=== PATIENT | male | born 1935 | race Caucasian/White ===

== ENCOUNTER 2017-02-06 22:56 | Inpatient (IN) | payer OTHER ==
--- NOTE | 2017-02-07 00:20 | PDOC ---
History of Present Illness - General History Source: Patient Exam Limitations: No Limitations - History of Present Illness Initial Comments: 02/07/17 00:41 The patient is a 81 year old male with a significant past medical history of stents, open heart surgery (20 years ago), prostate surgery (3 years ago), HTN, HLD, who presents to the ED accompanied with daughter, complaining of SOB, left- sided chest pain, and cough. Pt states he has been having these symptoms for the past month. He describes the chest pain as sharp and 8/10 in severity. He just came [place] to the [place] 3 [place] ago from [facility]. Saw Dr. fagan on and was told he had congestion or pneumonia. Patient denies fever, chills, nausea, vomiting, diarrhea, Patient currently takes aspirin everyday. PCP: Dr. Moy [facility] Slide Forming Machine Operator: Dr. Fagan at [place]. <Marvin Montez - Last Filed: 02/07/17 01:49> - General History Source: Patient, Family Exam Limitations: No Limitations <Meera Nye - Last Filed: 02/07/17 02:08> - General Chief Complaint: Shortness of Breath Stated Complaint: DIFFICULTY BREATHING Time Seen by Provider: 02/06/17 23:48 Past History <Marvin Montez - Last Filed: 02/07/17 01:49> - Past Medical History Cardiac Disorders: Yes Other medical history: prostate - Surgical History Cardiac Surgery: Yes - Psycho/Social/Smoking Cessation Hx Suicidal Ideation: No Smoking History: Never smoked <Meera Nye - Last Filed: 02/07/17 02:08> - Past Medical History Allergies/Adverse Reactions: Allergies Allergy/AdvReac Type Severity Reaction Status Date / Time No Known Allergies Allergy Verified 02/06/17 23:02 Home Medications: Ambulatory Orders Aspirin [ASA -] 81 mg PO DAILY 02/06/17 Azithromycin [Zithromax -] 250 mg PO DAILY 02/06/17 Tamsulosin HCl [Flomax] 0.4 mg PO DAILY 02/06/17 Review of Systems - Review of Systems Able to Perform ROS?: Yes Comments:: 02/07/17 00:41 GENERAL/CONSTITUTIONAL: No: fever, chills, weakness, loss of appetite. HEAD, EYES, EARS, NOSE AND THROAT: No: change in vision, ear pain, discharge, sore throat, throat swelling. CARDIOVASCULAR: + chest pain. No: lightheadedness, palpitations, syncope RESPIRATORY: + cough + SOB No: wheezing, hemoptysis, stridor. GASTROINTESTINAL: No: nausea, vomiting, abdominal cramping, diarrhea, rectal bleeding, constipation. GENITOURINARY: No: dysuria, hematuria, frequency, urgency, flank pain. MUSCULOSKELET AL: No: back pain, neck pain, joint pain, muscle swelling or pain SKIN AND BREASTS: No: lesions, pallor, rash or easy bruising. NEUROLOGIC: No: headache, vertigo, paresthesias, weakness ENDOCRINE: No: unexplained weight gain or loss HEMATOLOGIC/LYMPHATIC: No: anemia, easy bleeding, swelling nodes <Marvin Montez - Last Filed: 02/07/17 01:49> *Physical Exam - Vital Signs Last Vital Signs Temp Pulse Resp BP Pulse Ox 97 F L 95 H 18 163/78 92 L 02/06/17 22:59 02/06/17 22:59 02/06/17 22:59 02/06/17 22:59 02/06/17 22:59 - Physical Exam Comments: 02/07/17 00:41 GENERAL: The patient is in no acute distress. HEAD: Normal with no signs of trauma. EYES: PERRLA, EOMI, sclera anicteric, conjunctiva clear. ENT: Ears normal, nares patent, oropharynx clear without exudates. Moist mucous membranes. NECK: Normal range of motion, supple without lymphadenopathy, JVD, or masses. LUNGS: Rhonchi, expiratory inspiratory wheezing. HEART:Regular rate and rhythm, normal S1 and S2 without murmur, rub or gallop. ABDOMEN: Soft, nontender, normoactive bowel sounds. No guarding, no rebound. EXTREMITIES: Normal range of motion, no edema. No clubbing or cyanosis. No erythema, or tenderness. NEUROLOGICAL: Cranial nerves II through XII grossly intact. Normal speech. No focal neurological deficits. MUSCULOSKELETAL: Back non-tender to palpation, no CVA tenderness SKIN: Warm, Dry, normal turgor, no rashes or lesions noted. <Marvin Montez - Last Filed: 02/07/17 01:49> - Vital Signs Last Vital Signs Temp Pulse Resp BP Pulse Ox 97 F L 95 H 18 163/78 92 L 02/06/17 22:59 02/06/17 22:59 02/06/17 22:59 02/06/17 22:59 02/06/17 22:59 <Meera Nye - Last Filed: 02/07/17 02:08> Heart Score/ECG Review #1 ECG reviewed & interpreted by me at: 02:07 - ECG Intrepretation Comment:: 02/07/17 02:07 Twelve-lead EKG was performed and reviewed by me. There is normal sinus rhythm with a normal rate of 79 bpm. The axis is normal. The intervals are normal - pr: 122ms, QRS:96ms, QTc:467ms. PAC <Meera Nye - Last Filed: 02/07/17 02:08> ED Treatment Course - LABORATORY CBC & Chemistry Diagram: 02/07/17 00:10 02/07/17 00:10 - ADDITIONAL ORDERS Additional order review: 02/07/17 00:10 RBC 4.37 MCV 80.2 MCHC 31.5 L RDW 18.3 H MPV 8.7 Neutrophils % 63.7 Lymphocytes % 16.1 Monocytes % 13.2 H Eosinophils % 5.0 H Basophils % 2.0 <Marvin Montez - Last Filed: 02/07/17 01:49> - LABORATORY CBC & Chemistry Diagram: 02/07/17 00:10 02/07/17 00:10 - RADIOLOGY Radiology Studies Ordered: Category Date Time Status CHEST X-RAY PORTABLE* [RAD] Stat Radiology 02/06/17 23:51 Ordered <Meera Nye - Last Filed: 02/07/17 02:08> Medical Decision Making - Medical Decision Making 02/07/17 01:[address] Simeon, who is on-call for PCP Samantha Prajapati <Marvin Montez - Last Filed: 02/07/17 01:49> - Medical Decision Making 02/07/17 00:20 A portion of this note was documented by scribe services under my direction. I have reviewed the details of the note, within reason, and agree with the documentation with the following case summary and management plan written by me. Nursing documentation reviewed and incorporated into medical decision making This is an 81 yo M with a history of HTN, HLD, CAD s/p CABG 20 years ago and stents 2 years ago Pt is brought in to the ER by his daughter He was recently in [facility] with a cousin who While there, he developed a cough and shortness of breath He was seen in a local hospital where he was told that the had a cardiac event He did not want to have any procedures there and told them that he wanted to leave [place] the [place] three days ago He was seen by his ehs teacher two days ago His ehs teacher told him this was not his heart but most likely pneumonia or bronchitis Pt has a productive cough, congestion, Left sided sharp chest pain No known fevers No chills no chest wall trauma On examination Diffusely rhoncherous Diffusely wheezing DD: Differential includes cardiac ischemia, pe, asthma exacerbation, pneumonia, pneumothorax, pleural effusion, costochondritis, pericarditis, GERD. 02/07/17 01:02 Laboratory Tests 02/07/17 02/07/17 02/07/17 00:10 00:10 00:10 WBC 7.6 Hgb 11.0 L Hct 35.0 L Plt Count 258 Neutrophils % 63.7 Lymphocytes % 16.1 INR 1.17 H Sodium 141 Potassium 4.8 Chloride 104 Carbon Dioxide 29 BUN 21 H Creatinine 1.2 Random Glucose 110 H Creatine Kinase 72 Troponin I 0.02 B-Natriuretic Peptide 4910.91 H 02/07/17 01:02 CXR: Left basilar consolidation 02/07/17 01:20 02/07/17 01:[address] gastelum Case reviewed with Dr Simeon Will admit to Tele for close monitoring Will still do CTA as pt recently returned from [facility] and is hypoxic This is likely due to pneumonia Will give Ceftriaxone and Azithromycin 02/07/17 01:47 <Meera Nye - Last Filed: 02/07/17 02:08> *DC/Admit/Observation/Transfer - Attestations Scribe Attestion: 02/07/17 00:42 Documentation prepared by Marvin Montez, acting as medical staffing coordinator for Meera Nye MD. <Marvin Montez - Last Filed: 02/07/17 01:49> - Discharge Dispostion Admit: Yes <Meera Nye - Last Filed: 02/07/17 02:08> Diagnosis at time of Disposition: Pneumonia Qualifiers: Pneumonia type: due to unspecified organism Laterality: left Lung location: lower lobe of lung Qualified Code(s): J18.1 - Lobar pneumonia, unspecified organism - Discharge Dispostion Condition at time of disposition: Stable - Referrals
[2017-02-07 00:26] LABS: MCH 25.3 pg (25.7-33.7); MCHC 31.5 g/dl (32.0-35.9); MEAN CELL VOLUME 80.2 fl (80-96); MEAN PLT VOLUME 8.7 fl (7.5-11.1); NEUTROPHILS 63.7 % (42.8-82.8); PLATELET COUNT 258 K/MM3 (134-434); RDW 18.3 % (11.9-15.9); WHITE BLOOD COUNT 7.6 K/mm3 (4.0-10.0)
[2017-02-07 00:40] LABS: INR 1.17 (0.82-1.09); PROTHROMBIN TIME (PATIENT) 12.9 SEC (9.98-11.88)
[2017-02-07 00:48] LABS: ALBUMIN 2.6 g/dl (3.4-5.0); BILIRUBIN,TOTAL 0.1 mg/dL (0.2-1.0); CALCIUM 8.2 mg/dL (8.5-10.1); COCKROFT - GAULT 53.86; CREATININE 1.2 mg/dL (0.7-1.3); MAGNESIUM 2.2 mg/dL (1.8-2.4); TOT PROT 6.9 g/dl (6.4-8.2)
[2017-02-07 00:51] LABS: TROPONIN I 0.02 ng/ml (0.00-0.05)
[2017-02-07] MEDS ORDERED: ALBUTEROL SO4 2.5/IPRATROPIUM 0.5 INH SOL 3 ML VIAL.NEB. NEB ONE ×2 (01:20→01:55)
[2017-02-07] MEDS ORDERED: AZITHROMYCIN IVPB 500 MG in DEXTROSE 5%-WATER - 250 ML IVPB ONE (01:20)
[2017-02-07] MEDS ORDERED: CEFTRIAXONE 1 GM in DEXTROSE 5%-WATER - 50 ML IVPB ONE (01:20)
[2017-02-07] MEDS ORDERED: CEFTRIAXONE 50 ML ONE (01:55)
[2017-02-07] MEDS ORDERED: AZITHROMYCIN IVPB 250 ML IVPB ONE (01:55)
[2017-02-07] MEDS ORDERED: FUROSEMIDE 40 MG/4 ML INJECTABLE VIAL IVPUSH ONE (02:49)
[2017-02-07] MEDS ORDERED: FUROSEMIDE 40 MG/4 ML INJECTABLE VIAL ONE (02:57)
--- NOTE | 2017-02-07 04:07 | HP ---
Admitting History and Physical - Admission Chief Complaint: Cough and dyspnea for 5 days History of Present Illness: 81 y/o male with worsening cough, dyspnea and fever for 5 days. Pt reports weakness. Symptoms worsen with activity . History Source: Patient, Family Member, Medical Record Limitations to Obtaining History: No Limitations - Past Medical History Cardiovascular: Yes: CAD, HTN, Hyperlipdemia Renal/: Yes: BPH - Past Surgical History Past Surgical History: Yes: CABG, TURP - Smoking History Smoking history: Never smoked - Alcohol/Substance Use Hx Alcohol Use: No History of Substance Use: reports: None Home Medications - Allergies Allergies/Adverse Reactions: Allergies Allergy/AdvReac Type Severity Reaction Status Date / Time No Known Allergies Allergy Verified 02/06/17 23:02 - Home Medications Home Medications: Ambulatory Orders Aspirin [ASA -] 81 mg PO DAILY 02/06/17 Azithromycin [Zithromax -] 250 mg PO DAILY 02/06/17 Tamsulosin HCl [Flomax] 0.4 mg PO DAILY 02/06/17 Family Disease History - Family Disease History Family History: Unremarkable Review of Systems - Review of Systems Constitutional: reports: Fever, Weakness Neck: reports: No Symptoms Cardiovascular: reports: Chest Pain (pleuritic chest pain), Shortness of Breath Respiratory: reports: Cough, SOB on Exertion Neurological: reports: Weakness Physical Examination Vital Signs: Vital Signs Temperature 97 F L 02/06/17 22:59 Pulse Rate 95 H 02/06/17 22:59 Respiratory Rate 18 02/06/17 22:59 Blood Pressure 163/78 02/06/17 22:59 O2 Sat by Pulse Oximetry (%) 92 L 02/06/17 22:59 Constitutional: Yes: No Distress Neck: Yes: Supple Cardiovascular: Yes: Regular Rate and Rhythm, S1, S2 Respiratory: Yes: Regular, Cough. No: Accessory Muscle Use Gastrointestinal: Yes: Normal Bowel Sounds, Soft. No: Tenderness Neurological: Yes: Alert, Oriented. No: Loss of Sensation ...Motor Strength: WNL Imaging - Results Chest X-ray: Report Reviewed Problem List - Problems (1) Pneumonia Assessment/Plan: Empiric antibiotics and cultures Code(s): J18.9 - PNEUMONIA, UNSPECIFIED ORGANISM Qualifiers: Pneumonia type: due to unspecified organism Laterality: left Lung location: lower lobe of lung Qualified Code(s): J18.1 - Lobar pneumonia, unspecified organism (2) HTN (hypertension) Assessment/Plan: Controlled Code(s): I10 - ESSENTIAL (PRIMARY) HYPERTENSION Qualifiers: Hypertension type: essential hypertension Qualified Code(s): I10 - Essential (primary) hypertension (3) CAD (coronary artery disease) Assessment/Plan: Stable Code(s): I25.10 - ATHSCL HEART DISEASE OF [place] CORONARY ARTERY W/O ANG PCTRS Qualifiers: Coronary Disease-Associated Artery/Lesion type: bypass graft [place] vs. transplanted heart: [place] heart Associated angina: without angina Qualified Code(s): I25.810 - Atherosclerosis of coronary artery bypass graft( s) without angina pectoris (4) Hyperlipidemia Assessment/Plan: Will check lipids Code(s): E78.5 - HYPERLIPIDEMIA, UNSPECIFIED Qualifiers: Hyperlipidemia type: unspecified Qualified Code(s): E78.5 - Hyperlipidemia, unspecified (5) BPH (benign prostatic hyperplasia) Assessment/Plan: Continue Flomax Code(s): N40.0 - BENIGN PROSTATIC HYPERPLASIA WITHOUT LOWER URINRY TRACT SYMP Qualifiers: Prostatic enlargement morphology: unspecified morphology Lower urinary tract symptom presence: presence of symptoms unspecified Qualified Code(s ): N40.0 - Benign prostatic hyperplasia without lower urinary tract symptoms
[2017-02-07] MEDS ORDERED: ALBUTEROL SO4 0.083% IH SOL 2.5 MG/3 ML VIAL.NEB. NEB PRN (04:11)
[2017-02-07] MEDS ORDERED: ACETAMINOPHEN 325 MG TABLET (FP) PO PRN (04:14)
[2017-02-07 07:17] LABS: ALBUMIN 2.9 g/dl (3.4-5.0); ALK PHOS 69 U/L (45-117); ANION GAP 12 (8-16); BILIRUBIN,TOTAL 0.2 mg/dL (0.2-1.0); CALCIUM 8.3 mg/dL (8.5-10.1); CO2 29 mmol/L (21-32); COCKROFT - GAULT 58.76; CREATININE 1.1 mg/dL (0.7-1.3); GLUCOSE,RANDOM 118 mg/dL (74-106); SGOT/AST 13 U/L (15-37); SGPT/ALT 17 U/L (12-78); TOT PROT 7.2 g/dl (6.4-8.2)
[2017-02-07 07:18] LABS: BASOPHIL 1.5 % (0-2.0); EOSINOPHIL 2.4 % (0-4.5); MCH 25.5 pg (25.7-33.7); MCHC 31.8 g/dl (32.0-35.9); MEAN CELL VOLUME 80.3 fl (80-96); MEAN PLT VOLUME 9.2 fl (7.5-11.1); NEUTROPHILS 66.8 % (42.8-82.8); PLATELET COUNT 252 K/MM3 (134-434); RDW 17.8 % (11.9-15.9); WHITE BLOOD COUNT 8.2 K/mm3 (4.0-10.0)
[2017-02-07] MEDS ORDERED: TAMSULOSIN HCL 0.4 MG CAP.ER.24H (FP) ONE (08:36)
[2017-02-07] MEDS ORDERED: ALBUTEROL SO4 0.083% IH SOL 2.5 MG/3 ML VIAL.NEB. NEB ONE (08:36)
[2017-02-07] MEDS: TAMSULOSIN HCL 0.4 MG CAP.ER.24H (FP) PO SCH (08:39)
[2017-02-07] MEDS ORDERED: amLODIPine BESYLATE 5 MG TABLET (FP) ONE (09:27)
[2017-02-07] MEDS: amLODIPine BESYLATE 5 MG TABLET (FP) PO SCH (09:27)
[2017-02-07] MEDS: ASPIRIN 81 MG CHEWABLE TABLETS PO SCH (09:27)
[2017-02-07] MEDS ORDERED: ASPIRIN 81 MG CHEWABLE TABLETS ONE (09:27)
[2017-02-07] MEDS ORDERED: AZITHROMYCIN IVPB 500 MG in DEXTROSE 5%-WATER - 250 ML IVPB SCH (10:00)
[2017-02-07] MEDS ORDERED: CEFTRIAXONE 1 GM in DEXTROSE 5%-WATER - 50 ML IVPB SCH (10:00)
[2017-02-07 11:23] VITALS: BMI 26.1
[2017-02-07] MEDS: ENOXAPARIN NA (PORCINE) 40 MG/0.4 ML DISP.SYRIN SQ SCH (12:25)
--- NOTE | 2017-02-07 16:30 | PN ---
Progress Note, Physician Chief Complaint: Feels better - Current Medication List Current Medications: Active Medications Acetaminophen (Tylenol -) 650 mg PO Q4H PRN PRN Reason: FEVER OR PAIN Albuterol Sulfate (Ventolin 0.083% Nebulizer Soln -) 1 amp NEB Q6H PRN PRN Reason: SHORT OF BREATH/WHEEZING Last Admin: 02/07/17 08:39 Dose: 1 amp Amlodipine Besylate (Norvasc -) 5 mg PO DAILY [facility] Last Admin: 02/07/17 09:27 Dose: 5 mg Aspirin (Asa -) 81 mg PO DAILY [facility] Last Admin: 02/07/17 09:27 Dose: 81 mg Azithromycin (Zithromax 500mg Ivpb (Pre-Docked)) 500 mg IVPB DAILY [facility] Ceftriaxone Sodium (Rocephin 1gm Ivpb (Pre-Docked)) 1 gm IVPB DAILY [facility] Enoxaparin Sodium (Lovenox -) 40 mg SQ DAILY [facility] Last Admin: 02/07/17 12:25 Dose: 40 mg Tamsulosin HCl (Flomax -) 0.4 mg PO DAILY@0830 [facility] Last Admin: 02/07/17 08:39 Dose: 0.4 mg - Objective Vital Signs: Vital Signs Temperature 98.2 F 02/07/17 14:00 Pulse Rate 88 02/07/17 14:00 Respiratory Rate 20 02/07/17 14:00 Blood Pressure 137/61 02/07/17 14:00 O2 Sat by Pulse Oximetry (%) 95 02/07/17 11:48 Constitutional: Yes: No Distress Neck: Yes: Supple Cardiovascular: Yes: Regular Rate and Rhythm, S1, S2 Respiratory: Yes: CTA Bilaterally Gastrointestinal: Yes: Normal Bowel Sounds, Soft Neurological: Yes: Alert, Oriented. No: Loss of Sensation ...Motor Strength: WNL Labs: CBC, BMP 02/07/17 06:15 02/07/17 06:15 INR, PTT INR 1.17 (0.82-1.09) H 02/07/17 00:10 Problem List - Problems (1) Pneumonia Assessment/Plan: Empiric antibiotics and cultures Code(s): J18.9 - PNEUMONIA, UNSPECIFIED ORGANISM Qualifiers: Pneumonia type: due to unspecified organism Laterality: left Lung location: lower lobe of lung Qualified Code(s): J18.1 - Lobar pneumonia, unspecified organism
[2017-02-07] MEDS: cefTRIAXone 1 GM/50 ML BAG (PRE-DOCKED) IVPB SCH (17:29)
[2017-02-07] MEDS: AZITHROMYCIN IVPB 500 MG/250 ML D5W PRE-DOCKED IVPB SCH (17:35)
[2017-02-08 06:35] LABS: BASOPHIL 1.2 % (0-2.0); EOSINOPHIL 5.4 % (0-4.5); MCH 25.9 pg (25.7-33.7); MEAN CELL VOLUME 80.8 fl (80-96); MEAN PLT VOLUME 8.7 fl (7.5-11.1); NEUTROPHILS 67.8 % (42.8-82.8); PLATELET COUNT 233 K/MM3 (134-434); RDW 17.8 % (11.9-15.9); WHITE BLOOD COUNT 6.2 K/mm3 (4.0-10.0)
[2017-02-08 07:00] LABS: ALBUMIN 2.6 g/dl (3.4-5.0); ALK PHOS 63 U/L (45-117); ANION GAP 5 (8-16); BILIRUBIN,TOTAL 0.4 mg/dL (0.2-1.0); CALCIUM 7.6 mg/dL (8.5-10.1); CHOLESTEROL 167 mg/dL (50-200); CO2 33 mmol/L (21-32); COCKROFT - GAULT 61.11; CREATININE 1.1 mg/dL (0.7-1.3); GLUCOSE,RANDOM 120 mg/dL (74-106); LDL CHOLESTEROL (ONLY SJRH) 95 mg/dL (5-100); SGOT/AST 13 U/L (15-37); SGPT/ALT 13 U/L (12-78); TOT PROT 6.6 g/dl (6.4-8.2)
--- NOTE | 2017-02-08 08:59 | PN ---
Progress Note (short form) - Note Progress Note: Spoke to [id number] over the phone to obtain history. they brought in patient with complaint of weakness, shortness of breath and malaise with pleuritic chest pain going on for over a month now. not noted significant sputum production. She said he has complained about chills, but no fever recorded since admission. recently returned from [facility], saw his die filer last week and was given zpack. she does state that for years he has been getting exertional dyspnea, at occasion with associated wheezing but was never diagnosed with lung disease or given inhalers. was a heavy smoker and drinker in the past-quit around the age of 48. 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 CABG 20 yrs ago card cath with stents 2 yrs ago prostate surgery 10 yrs ago HTN CBC, BMP 02/08/17 05:36 02/08/17 05:36 Vital Signs Period Temp Pulse Resp BP Sys/[place] Pulse Ox Last 24 Hr 98.1 F-99.2 F 73-88 18-20 137-153/61-76 95-98 S1S2 RRR Lungs scattered wheezing, basal rhonchi abd soft no edema awake alert, no focal deficit Imp CT read as infiltrates with adenopathy-?bronchiectasis by history a chronic process (doubt acute pneumonia) will request ID and pulm evaluation and will review CT. cont iv abx, nebs, O2 for now cardiac medicines as prior to admission.
--- NOTE | 2017-02-08 09:06 | EKG ---
Test Reason : Blood Pressure : / mmHG Vent. Rate : 079 BPM Atrial Rate : 079 BPM P-R Int : 122 ms QRS Dur : 096 ms QT Int : 408 ms P-R-T Axes : 024 007 058 degrees QTc Int : 467 ms SINUS RHYTHM WITH PREMATURE ATRIAL COMPLEXES IN A PATTERN OF BIGEMINY ANTERIOR INFARCT , AGE UNDETERMINED ABNORMAL ECG NO PREVIOUS ECGS AVAILABLE Confirmed by LETY ROSALES MD ([id number]) on 02/08/2017 9:06:46 AM Referred By: Confirmed By:LETY ROSALES MD
[2017-02-08] MEDS: ASPIRIN 81 MG CHEWABLE TABLETS PO SCH (10:24)
[2017-02-08] MEDS: TAMSULOSIN HCL 0.4 MG CAP.ER.24H (FP) PO SCH (10:24)
[2017-02-08] MEDS: AZITHROMYCIN IVPB 500 MG/250 ML D5W PRE-DOCKED IVPB SCH (10:24)
[2017-02-08] MEDS: amLODIPine BESYLATE 5 MG TABLET (FP) PO SCH (10:24)
[2017-02-08] MEDS: ENOXAPARIN NA (PORCINE) 40 MG/0.4 ML DISP.SYRIN SQ SCH (10:24)
[2017-02-08] MEDS: cefTRIAXone 1 GM/50 ML BAG (PRE-DOCKED) IVPB SCH (10:24)
[2017-02-08] MEDS: ALBUTEROL SO4 0.083% IH SOL 2.5 MG/3 ML VIAL.NEB. NEB SCH ×3 (11:05→18:31)
--- NOTE | 2017-02-08 11:51 | CONSULT ---
Consultation: REQUESTING PROVIDER: CONSULT REQUEST: We have been asked to medically evaluate this patient for ( pulmonology). HISTORY OF PRESENT ILLNESS: 81 y/o male came to hospital with a complain of chest pain in left coastal margin and middle of chest, sob, and cough. Patient states tat he has productive cough from 3 days, yellow sputum, improved after getting medication in hospital. Denies fever and chills. Patient states that he has this chest pain from 1 month, its intermittient, 8/10 in intensity, non radiating, increases with cough. No pain on deep inspiration. States some time he has runny nose denies any contact with person who has flu like symptoms. was admitted in a hospital last month outside [facility], for [address] shows, infiltrate patient on IV ceftriaxone and azithro Today patient feels better. REVIEW OF SYSTEMS: CONSTITUTIONAL: Absent: fever, chills, diaphoresis, generalized weakness, HEENT: Absent: rhinorrhea, nasal congestion, throat pain, throat swelling, CARDIOVASCULAR: Absent: chest pain, syncope, palpitations, irregular heart rate, lightheadedness , peripheral edema RESPIRATORY: Absent: cough, shortness of breath, dyspnea with exertion, orthopnea, wheezing, stridor, hemoptysis GASTROINTESTINAL: Absent: abdominal pain, abdominal distension, nausea, GENITOURINARY: Absent: dysuria, frequency, urgency, PSYCHIATRIC: Absent: anxiety, depression, PHYSICAL EXAMINATION Vital Signs - 24 hr 02/07/17 02/07/17 02/07/17 11:48 14:00 18:40 Temperature 98.2 F 98.6 F Pulse Rate 88 74 Respiratory 19 20 18 Rate Blood Pressure 137/61 142/67 O2 Sat by Pulse 95 Oximetry (%) 02/07/17 02/07/17 02/08/17 21:00 22:00 02:07 Temperature 98.1 F 98.2 F Pulse Rate 74 74 Respiratory 18 18 20 Rate Blood Pressure 138/73 141/67 O2 Sat by Pulse 98 Oximetry (%) 02/08/17 02/08/17 05:48 10:00 Temperature 98.2 F 98.3 F Pulse Rate 73 70 Respiratory 18 19 Rate Blood Pressure 153/76 134/68 O2 Sat by Pulse Oximetry (%) GENERAL: Awake, alert, and fully oriented, in no acute distress. HEAD: Normal with no signs of trauma. EYES: Pupils equal, round and reactive to light, EARS, NOSE, THROAT: oropharynx clear without exudates. Moist mucous membranes. NECK: Normal range of motion, no lymphadenopathy. LUNGS: b/l decrease breath sounds. diffuse inspiratory and expiratory wheez, HEART: s1s2 normal ABDOMEN: Soft, nontender, not distended, normoactive bowel sounds, n UPPER EXTREMITIES: 2+ pulses, warm, well-perfused. No cyanosis. LOWER EXTREMITIES:well-perfused. No calf tenderness. No peripheral edema. SKIN: Warm, dry, normal turgor, no rashes or lesions noted. Laboratory Results - last 24 hr 02/08/17 02/08/17 05:36 05:36 WBC 6.2 RBC 4.31 Hgb 11.1 L Hct 34.8 L MCV 80.8 MCHC 32.0 RDW 17.8 H Plt Count 233 MPV 8.7 Neutrophils % 67.8 Lymphocytes % 15.9 Monocytes % 9.7 Eosinophils % 5.4 H D Basophils % 1.2 Sodium 140 Potassium 4.9 Chloride 102 Carbon Dioxide 33 H Anion Gap 5 L BUN 17 Creatinine 1.1 Creat Clearance w eGFR > 60 Random Glucose 120 H Calcium 7.6 L Total Bilirubin 0.4 D AST 13 L ALT 13 D Alkaline Phosphatase 63 Total Protein 6.6 Albumin 2.6 L Triglycerides 89 Cholesterol 167 Total LDL Cholesterol 95 HDL Cholesterol 61 H Active Medications Generic Name Dose Route Start Last Admin Trade Name Freq PRN Reason Stop Dose Admin Acetaminophen 650 mg 02/07/17 04:14 Tylenol - PO Q4H PRN FEVER OR PAIN Albuterol Sulfate 1 amp 02/08/17 08:45 Ventolin 0.083% Nebulizer Soln [facility] Amlodipine Besylate 5 mg 02/07/17 10:00 02/08/17 10:24 Norvasc - PO 5 mg DAILY [facility] Administration Aspirin 81 mg 02/07/17 10:00 02/08/17 10:24 Asa - PO 81 mg DAILY [facility] Administration Azithromycin 500 mg 02/07/17 18:00 02/08/17 10:24 Zithromax 500mg Ivpb (Pre-Docked) IVPB 500 mg DAILY [facility] Administration Ceftriaxone Sodium 1 gm 02/07/17 18:00 02/08/17 10:24 Rocephin 1gm Ivpb (Pre-Docked) IVPB 1 gm DAILY [facility] Administration Enoxaparin Sodium 40 mg 02/07/17 11:45 02/08/17 10:24 Lovenox - SQ 40 mg DAILY [facility] Administration Tamsulosin HCl 0.4 mg 02/07/17 08:30 02/08/17 10:24 Flomax - PO 0.4 mg DAILY@[address] chest: 1. No evidence of pulmonary embolism. 2. Bibasilar consolidation that could represent acute pneumonia. 3. Mild mediastinal and more extensive left hilar lymphadenopathy. Clinical correlation and follow- up recommended. Please see above discussion. ASSESSMENT/PLAN: pneumonia mediastinal and hilar lymphadenopath HTN HLD H/o CAD plan continue with Iv antibiotics as per iD continue with nebulizer start on iv steroid lymphadenopathy can be reactive oxygen use prn keep spo> 90 blood culture no growth dvt prophylaxis: on lovenox follow influenza rapid follow urine for legionella and strep penumo follow sputum culture Dispo: We will continue to follow the patient. Thank you for this consultative opportunity. Visit type - Emergency Visit Emergency Visit: Yes ED Registration Date: 02/07/17 Care time: The patient presented to the Emergency Department on the above date and was hospitalized for further evaluation of their emergent condition. - New Patient This patient is new to me today: Yes Date on this admission: 02/08/17 - Critical Care Critical Care patient: No
[2017-02-08] MEDS ORDERED: ALBUTEROL SO4 2.5/IPRATROPIUM 0.5 INH SOL 3 ML VIAL.NEB. NEB SCH (12:00)
--- NOTE | 2017-02-08 13:48 | PN ---
Progress Note (short form) - Note Progress Note: ID Consult dictated Looks comfortable Selected Entries 02/07/17 02/08/17 21:00 10:00 Temperature 98.3 F Pulse Rate 70 Respiratory 19 Rate Blood Pressure 134/68 O2 Sat by Pulse 98 Oximetry (%) Oxygen Flow 2 Rate Lung Bibasilar rales rhonchi Microbiology 02/07/17 01:10 Blood - Peripheral Venous Blood Culture - Preliminary NO GROWTH OBTAINED AFTER 24 HOURS, INCUBATION TO CONTINUE FOR 4 DAYS. 02/07/17 01:10 Blood - Peripheral Venous Blood Culture - Preliminary NO GROWTH OBTAINED AFTER 24 HOURS, INCUBATION TO CONTINUE FOR 4 DAYS. Laboratory Tests 02/08/17 02/08/17 05:36 05:36 WBC 6.2 Hct 34.8 L Plt Count 233 BUN 17 Assessment ? Chronic lung disease with superimposed respiratory infection / pneumonia Plan Continue current antibiotics Consider oral levofloxacin for 5 days from tomorrow Repeat the CT scan in few months re adenopathy Huber ERICKSON
[2017-02-08] MEDS: methylPREDNISolone NA SUCC 40 MG/1 ML VIAL IVPB SCH ×2 (14:59→21:51)
--- NOTE | 2017-02-08 15:26 | PN ---
Teaching Attending Note Name of Resident: Devyn Jimenes ATTENDING PHYSICIAN STATEMENT I saw and evaluated the patient. I reviewed the resident's note and discussed the case with the resident. I agree with the resident's findings and plan as documented. PULMONARY IMP PNEUMONIA DYSPNEA ?INTERSTITIAL LUNG DISEASE,COPD,CHRONIC LUNG DISEASE MEDIASTINAL AND HILAR ADENOPATHY ? REACTIVE,?INFECTIOUS,?MALIGNANT ASHD S/P CABG,STENTS HTN PLAN INHALED BRONCHODILATORS ANTIBIOTICS SHORT COURSE OF STEROIDS CULTURES F/U CHEST CT 4-6 WKS TO DOCUMENT RESOLUTION OF INFILTRATES,ADENOPATHY PFTS OUTPATIENT DR AKHTAR Problem List - Problems (1) CAD (coronary artery disease) Code(s): I25.10 - ATHSCL HEART DISEASE OF [place] CORONARY ARTERY W/O ANG PCTRS Qualifiers: Coronary Disease-Associated Artery/Lesion type: bypass graft [place] vs. transplanted heart: [place] heart Associated angina: without angina Qualified Code(s): I25.810 - Atherosclerosis of coronary artery bypass graft( s) without angina pectoris (2) HTN (hypertension) Code(s): I10 - ESSENTIAL (PRIMARY) HYPERTENSION Qualifiers: Hypertension type: essential hypertension Qualified Code(s): I10 - Essential (primary) hypertension (3) Pneumonia Code(s): J18.9 - PNEUMONIA, UNSPECIFIED ORGANISM Qualifiers: Pneumonia type: due to unspecified organism Laterality: left Lung location: lower lobe of lung Qualified Code(s): J18.1 - Lobar pneumonia, unspecified organism (4) Mediastinal adenopathy Code(s): R59.0 - LOCALIZED ENLARGED LYMPH NODES (5) Hilar lymphadenopathy Code(s): R59.0 - LOCALIZED ENLARGED LYMPH NODES
--- NOTE | 2017-02-08 17:07 | CONS ---
DATE OF CONSULTATION: DATE OF DICTATION: 02/08/2017 INFECTIOUS DISEASE CONSULTATION HISTORY OF PRESENT ILLNESS: This is an 81-year-old Turk[place] male who is admitted to the hospital with chief complaint of dyspnea and chest congestion with cough over 5 days. According to the notes, his symptoms worsened with physical activity. Upon arrival here, he was noted to be afebrile. He has never smoked, and he had a chest x-ray performed which showed prominence of the left hilum and questionable left infiltrate. A CT scan of the chest with PE protocol was performed, which had no evidence of PE, but bibasilar consolidation possibly acute pneumonia. Mild mediastinal and more extensive left hilar adenopathy was noted. The patient was empirically placed on ceftriaxone and azithromycin. His oxygen saturation upon admission was 92 on room air, subsequently with nasal cannula he is at 100% oxygenation. Presently appears comfortable, but does not look short of breath and seems in good spirits. PAST MEDICAL HISTORY: Includes coronary artery disease, hypertension, BPH, hyperlipidemia, coronary artery bypass graft surgery. MEDICATION: Include aspirin, tamsulosin. ALLERGIES: None known. SOCIAL HISTORY: Never smoked. No history of alcohol abuse. FAMILY HISTORY: Unobtainable. REVIEW OF SYSTEMS: Respiratory: Mild exertional dyspnea on admission with chest congestion, cough. ? pleuritic chest pain. Cardiac: No history of chest pain, palpitations, syncope. Gastrointestinal: No history of abdominal pain, vomiting, diarrhea, bleeding per rectum. Genitourinary: BPH. PHYSICAL EXAMINATION: General: He was an alert male in no acute distress. Vital signs: Temperature 98.3, pulse 70, blood pressure 134/68, respirations 19. Neck: Supple. Lungs: With bibasilar rales and rhonchi. Heart: S1, S2. Regular rhythm. Abdomen: Soft. Nontender. Extremities: Without clubbing, cyanosis, or edema. LABORATORY: White count is with hemoglobin 11.1, platelets of 233. BUN 17, creatinine 1.1. Liver enzymes within normal limits. Two sets of blood cultures no growth. ASSESSMENT: An 81-year-old male presents with acute respiratory complaints, cough, chest congestion, dyspnea in the absence of any fever. CT findings show infiltrates at the bases which may be chronic but cannot rule out an acute respiratory infection with pneumonia. Added findings of adenopathy as previously mentioned on CT. PLAN: Continue him on ceftriaxone and azithromycin through tomorrow with consideration of switching him to levofloxacin to continue for total of [address] of the chest in 3 months to rule out worsening adenopathy which may be on the basis of acute infection at this time. CUONG BETHEA M.D. SHEREE/[id number]
[2017-02-09] MEDS: methylPREDNISolone NA SUCC 40 MG/1 ML VIAL IVPB SCH ×4 (03:34→22:00)
[2017-02-09] MEDS: ALBUTEROL SO4 0.083% IH SOL 2.5 MG/3 ML VIAL.NEB. NEB SCH ×2 (06:35)
[2017-02-09 07:09] LABS: BASOPHIL 0.2 % (0-2.0); MCH 25.5 pg (25.7-33.7); MCHC 31.8 g/dl (32.0-35.9); MEAN CELL VOLUME 80.4 fl (80-96); MEAN PLT VOLUME 8.7 fl (7.5-11.1); PLATELET COUNT 245 K/MM3 (134-434); RDW 17.9 % (11.9-15.9); WHITE BLOOD COUNT 5.6 K/mm3 (4.0-10.0)
[2017-02-09 07:43] LABS: ALBUMIN 2.6 g/dl (3.4-5.0); ANION GAP 14 (8-16); BILIRUBIN,TOTAL 0.4 mg/dL (0.2-1.0); CALCIUM 8.1 mg/dL (8.5-10.1); CO2 26 mmol/L (21-32); COCKROFT - GAULT 67.22; GLUCOSE,RANDOM 160 mg/dL (74-106); LDH 137 U/L (87-241); SGOT/AST 11 U/L (15-37); SGPT/ALT 15 U/L (12-78); TOT PROT 6.6 g/dl (6.4-8.2)
[2017-02-09 07:44] LABS: ALK PHOS 67 U/L (45-117)
[2017-02-09] MEDS ORDERED: morphine CARPU-JECT 2 MG/1 ML DISP.SYRIN ONE (07:50)
--- NOTE | 2017-02-09 07:53 | HOSP ---
Physical Examination Vital Signs: Vital Signs Temperature 98.5 F 02/09/17 06:02 Pulse Rate 91 H 02/09/17 06:02 Respiratory Rate 20 02/09/17 06:02 Blood Pressure 143/69 02/09/17 06:02 O2 Sat by Pulse Oximetry (%) 95 02/08/17 22:00 Labs: CBC, BMP 02/09/17 06:10 Hospitalist Encounter Assessment: Seen the patient for chest pain per nurses request. Patient was complaining of substernal chest pain that is nonradiating and sharp. Denies shortness of breath or diaphoresis. STAT EKG ordered : Sinus Tachycardia @ [address] depressions in V5 V6, new from prior EKG done at 02/06/17 STAT cardiac profile ordered Vital Signs: 97.6 F, 153/83, 113 HR, 16 RR, 113 VT PCP notified by nurse Morphine ordered by PCP Visit type - Emergency Visit Emergency Visit: Yes ED Registration Date: 02/07/17 Care time: The patient presented to the Emergency Department on the above date and was hospitalized for further evaluation of their emergent condition. - New Patient This patient is new to me today: Yes Date on this admission: 02/09/17 - Critical Care Critical Care patient: No
[2017-02-09] MEDS ORDERED: morphine CARPU-JECT 2 MG/1 ML DISP.SYRIN IVPB ONE (08:00)
[2017-02-09] MEDS: ASPIRIN 81 MG CHEWABLE TABLETS PO SCH ×2 (08:00→09:43)
[2017-02-09 08:04] LABS: TROPONIN I < 0.02 ng/ml (0.00-0.05)
[2017-02-09] MEDS ORDERED: morphine CARPU-JECT 2 MG/1 ML DISP.SYRIN IVPUSH PRN (08:42)
--- NOTE | 2017-02-09 08:52 | PN ---
Progress Note (short form) - Note Progress Note: Spoke to [id number] over the phone to obtain history. they brought in patient with complaint of weakness, shortness of breath and malaise with pleuritic chest pain going on for over a month now. not noted significant sputum production. She said he has complained about chills, but no fever recorded since admission. recently returned from [facility], saw his overhead irrigator last week and was given zpack. she does state that for years he has been getting exertional dyspnea, at occasion with associated wheezing but was never diagnosed with lung disease or given inhalers. was a heavy smoker and drinker in the past-quit around the age of 48. 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 CABG 20 yrs ago card cath with stents 2 yrs ago prostate surgery 10 yrs ago HTN Developed chest pain around midnight-was given tylenol, but pain recurred around 3 am, stat EKG in am showed to me T wave inversion in lateral T wave inversion got iv morphine with some improvement CBC, BMP 02/09/17 06:10 02/09/17 06:10 first set of cardiac enzymes are negative Vital Signs Period Temp Pulse Resp BP Sys/Waldron Pulse Ox Last 24 Hr 97.6 F-98.5 F 67-113 18-20 132-153/65-83 95-97 S1S2 RRR Lungs scattered wheezing, no rhonchi chest pain is not reproducible abd soft no edema awake alert, no focal deficit Imp Initial admission for dyspnea, possible pneumonia with underlying chronic lung ds. CT read as infiltrates with adenopathy-?bronchiectasis cont iv abx, nebs, O2 for now new onset chest pain will obtain cardiac enzymes echo start NTP, Bblocker cardiology evaluation
[2017-02-09] MEDS ORDERED: NITROGLYCERIN 2% OINTMENT - 1GM PACKET TD ONE (09:03)
[2017-02-09 09:11] LABS: TROPONIN I 0.02 ng/ml (0.00-0.05)
[2017-02-09] MEDS ORDERED: ALBUTEROL SO4 0.083% IH SOL 2.5 MG/3 ML VIAL.NEB. NEB PRN (09:37)
[2017-02-09] MEDS: TAMSULOSIN HCL 0.4 MG CAP.ER.24H (FP) PO SCH (09:41)
[2017-02-09] MEDS: ENOXAPARIN NA (PORCINE) 40 MG/0.4 ML DISP.SYRIN SQ SCH (09:41)
[2017-02-09] MEDS: amLODIPine BESYLATE 5 MG TABLET (FP) PO SCH (09:41)
[2017-02-09] MEDS: NITROGLYCERIN 2% OINTMENT - 1GM PACKET TD SCH ×4 (09:41→23:14)
--- NOTE | 2017-02-09 09:41 | PN ---
<Devyn Jimenes - Last Filed: 02/10/17 09:00> Physical Exam: SUBJECTIVE: Patient seen and examined developed chest pain in night, git better with tylenol. Patient again got pain around 3: am and in morning for which he recieved morphine, pain decresed from 7 to 4 in intensity, but states that he still have pain, burning in nature, non radiating. Denies palpitation, nausea, vomiting, diaphoresis, lightheadidness. trop i < 0.02, patient has smoked for 40 years, 2 pack a day, stopped in 1994. states breathing has improved. cough has decreased. but still have diffuse wheez b/l OBJECTIVE: Vital Signs Period Temp Pulse Resp BP Sys/Waldron Pulse Ox Last 24 Hr 97.6 F-98.5 F 67-113 18-20 132-153/65-83 95 GENERAL: Awake, alert, and fully oriented, in no acute distress. EARS, NOSE, THROAT: oropharynx clear without exudates. NECK: Normal range of motion, no lymphadenopathy. LUNGS: b/l breath sounds improved, diffuse inspiratory and expiratory wheez b/l , no crakels HEART: s1s2 normal ABDOMEN: Soft, nontender, not distended, normoactive bowel sounds, UPPER EXTREMITIES: 2+ pulses, warm, well-perfused. No cyanosis. LOWER EXTREMITIES:well-perfused. No calf tenderness. No peripheral edema. SKIN: Warm, dry, Laboratory Results - last 24 hr 02/09/17 02/09/17 02/09/17 06:10 06:10 06:10 WBC 5.6 RBC 4.24 Hgb 10.8 L Hct 34.1 L MCV 80.4 MCHC 31.8 L RDW 17.9 H Plt Count 245 MPV 8.7 Neutrophils % 89.0 H D Lymphocytes % 10.1 D Monocytes % 0.7 L D Eosinophils % 0.0 D Basophils % 0.2 Sodium 141 Potassium 4.6 Chloride 101 Carbon Dioxide 26 D Anion Gap 14 BUN 21 H D Creatinine 1.0 Creat Clearance w eGFR > 60 Random Glucose 160 H D Calcium 8.1 L Total Bilirubin 0.4 AST 11 L ALT 15 Alkaline Phosphatase 67 LD Total 137 Creatine Kinase 67 Troponin I < 0.02 Total Protein 6.6 Albumin 2.6 L 02/09/17 08:25 WBC RBC Hgb Hct MCV MCHC RDW Plt Count MPV Neutrophils % Lymphocytes % Monocytes % Eosinophils % Basophils % Sodium Potassium Chloride Carbon Dioxide Anion Gap BUN Creatinine Creat Clearance w eGFR Random Glucose Calcium Total Bilirubin AST ALT Alkaline Phosphatase LD Total Creatine Kinase Troponin I 0.02 Total Protein Albumin Active Medications Generic Name Dose Route Start Last Admin Trade Name Freq PRN Reason Stop Dose Admin Acetaminophen 650 mg 02/07/17 04:14 02/09/17 03:34 Tylenol - PO 650 mg Q4H PRN Administration FEVER OR PAIN Albuterol Sulfate 1 amp 02/09/17 09:37 Ventolin 0.083% Nebulizer Soln - NEB Q4H PRN SHORT OF BREATH/WHEEZING Albuterol/Ipratropium 1 amp 02/09/17 12:00 Duoneb - NEB QIDR KRISTA Amlodipine Besylate 5 mg 02/07/17 10:00 02/08/17 10:24 Norvasc - PO 5 mg DAILY KRISTA Administration Aspirin 81 mg 02/07/17 10:00 02/08/17 10:24 Asa - PO 81 mg DAILY KRISTA Administration Azithromycin 500 mg 02/07/17 18:00 02/08/17 10:24 Zithromax 500mg Ivpb (Pre-Docked) IVPB 500 mg DAILY KRISTA Administration Ceftriaxone Sodium 1 gm 02/07/17 18:00 02/08/17 10:24 Rocephin 1gm Ivpb (Pre-Docked) IVPB 1 gm DAILY KRISTA Administration Enoxaparin Sodium 40 mg 02/07/17 11:45 02/08/17 10:24 Lovenox - SQ 40 mg DAILY KRISTA Administration Methylprednisolone Sodium Succinate 40 mg 02/08/17 15:00 02/09/17 03:34 Solu-Medrol - IVPB 40 mg Q6H-IV KRISTA Administration Metoprolol Tartrate 25 mg 02/09/17 10:00 Lopressor - PO BID [facility] Morphine Sulfate 2 mg 02/09/17 08:42 Morphine Injection - IVPUSH Q4H PRN PAIN Nitroglycerin 1 inch 02/09/17 09:15 Nitro-Bid 2% Paste - TD Q6HPO [facility] Tamsulosin HCl 0.4 mg 02/07/17 08:30 02/08/17 10:24 Flomax - PO 0.4 mg DAILY@0830 KRISTA Administration Microbiology 02/07/17 01:10 Blood - Peripheral Venous Blood Culture - Preliminary NO GROWTH OBTAINED AFTER 48 HOURS, INCUBATION TO CONTINUE FOR 3 DAYS. 02/07/17 01:10 Blood - Peripheral Venous Blood Culture - Preliminary NO GROWTH OBTAINED AFTER 48 HOURS, INCUBATION TO CONTINUE FOR 3 DAYS. 02/08/17 15:10 Urine For Antigen Detection Legionella Antigen - Final 02/08/17 15:10 Urine For Antigen Detection Streptococcus pneumoniae Antigen (M - Final 02/08/17 15:10 Nasopharyngeal Swab Influenza Types A,B Antigen (BRADLY) - Final 02/08/17 15:10 Nasopharyngeal Swab - Final ASSESSMENT pneumonia mediastinal and hilar lymphadenopath HTN HLD H/o CAD chest pain plan continue with Iv antibiotics as per iD neb with duoneb standing and albuterol prn iv steroid 40mg q6h oxygen use prn keep spo> 90 blood culture no growth, urine legionella and strep pneumo negative.influenza absent consider cardiology consult for chest pain. lymphadenopathyt can be reactive vs inflamatory vs malignent, need to repeat CT scan in few months. dvt prophylaxis: on lovenox follow sputum culture Visit type - Emergency Visit Emergency Visit: Yes ED Registration Date: 02/07/17 Care time: The patient presented to the Emergency Department on the above date and was hospitalized for further evaluation of their emergent condition. - New Patient This patient is new to me today: No - Critical Care Critical Care patient: No <Gus Grayson - Last Filed: 03/16/17 14:16> Physical Exam: SUBJECTIVE: Patient seen and examined OBJECTIVE: GENERAL: The patient is awake, alert, and fully oriented, in no acute distress. HEAD: Normal with no signs of trauma. EYES: PERRL, extraocular movements intact, sclera anicteric, conjunctiva clear. No ptosis. ENT: Ears normal, nares patent, oropharynx clear without exudates, moist mucous membranes. NECK: Trachea midline, full range of motion, supple. LUNGS: Breath sounds equal, clear to auscultation bilaterally, no wheezes, no crackles, no accessory muscle use. HEART: Regular rate and rhythm, S1, S2 without murmur, rub or gallop. ABDOMEN: Soft, nontender, nondistended, normoactive bowel sounds, no guarding, no rebound, no hepatosplenomegaly, no masses. EXTREMITIES: 2+ pulses, warm, well-perfused, no edema. NEUROLOGICAL: Cranial nerves II through XII grossly intact. Normal speech, gait not observed. PSYCH: Normal mood, normal affect. SKIN: Warm, dry, normal turgor, no rashes or lesions noted ASSESSMENT/PLAN: Problem List - Problems (1) CAD (coronary artery disease) Code(s): I25.10 - ATHSCL HEART DISEASE OF [place] CORONARY ARTERY W/O ANG PCTRS Qualifiers: Coronary Disease-Associated Artery/Lesion type: bypass graft [place] vs. transplanted heart: [place] heart Associated angina: without angina Qualified Code(s): I25.810 - Atherosclerosis of coronary artery bypass graft( s) without angina pectoris (2) HTN (hypertension) Code(s): I10 - ESSENTIAL (PRIMARY) HYPERTENSION Qualifiers: Hypertension type: essential hypertension Qualified Code(s): I10 - Essential (primary) hypertension (3) Pneumonia Code(s): J18.9 - PNEUMONIA, UNSPECIFIED ORGANISM Qualifiers: Pneumonia type: due to unspecified organism Laterality: left Lung location: lower lobe of lung Qualified Code(s): J18.1 - Lobar pneumonia, unspecified organism (4) Mediastinal adenopathy Code(s): R59.0 - LOCALIZED ENLARGED LYMPH NODES (5) Hilar lymphadenopathy Code(s): R59.0 - LOCALIZED ENLARGED LYMPH NODES
[2017-02-09] MEDS: cefTRIAXone 1 GM/50 ML BAG (PRE-DOCKED) IVPB SCH (09:42)
[2017-02-09] MEDS ORDERED: METOPROLOL TARTRATE 25 MG TABLET (FP) PO SCH (10:00)
--- NOTE | 2017-02-09 10:41 | EKG ---
Test Reason : Blood Pressure : / mmHG Vent. Rate : 105 BPM Atrial Rate : 105 BPM P-R Int : 162 ms QRS Dur : 106 ms QT Int : 366 ms P-R-T Axes : 093 -02 126 degrees QTc Int : 483 ms SINUS TACHYCARDIA INCOMPLETE LEFT BUNDLE BRANCH BLOCK NONSPECIFIC ST AND T WAVE ABNORMALITY ABNORMAL ECG WHEN COMPARED WITH ECG OF 07-FEB-2017 00:51, PREMATURE ATRIAL COMPLEXES ARE NO LONGER PRESENT INCOMPLETE LEFT BUNDLE BRANCH BLOCK IS NOW PRESENT INVERTED T WAVES HAVE REPLACED NONSPECIFIC T WAVE ABNORMALITY IN LATERAL LEADS CLINICAL CORRELATION IS RECOMMENDED Confirmed by SYDNEY ERICKSON, DOMINGA ([id number]) on 02/09/2017 10:41:09 AM Referred By: Confirmed By:DOMINGA GRIMES MD
[2017-02-09] MEDS: AZITHROMYCIN IVPB 500 MG/250 ML D5W PRE-DOCKED IVPB SCH (10:46)
[2017-02-09 11:17] LABS: C-REACTIVE PROTEIN 1.5 MG/DL (0.00-0.3)
--- NOTE | 2017-02-09 11:41 | PN ---
Teaching Attending Note Name of Resident: Devyn Jimenes ATTENDING PHYSICIAN STATEMENT I saw and evaluated the patient. I reviewed the resident's note and discussed the case with the resident. I agree with the resident's findings and plan as documented. PULMONARY alert,comfortable,-resp distress,less congestion,less cough. IMP PNEUMONIA DYSPNEA ?INTERSTITIAL LUNG DISEASE,COPD,CHRONIC LUNG DISEASE MEDIASTINAL AND HILAR ADENOPATHY ? REACTIVE,?INFECTIOUS,?MALIGNANT ASHD S/P CABG,STENTS HTN PLAN INHALED BRONCHODILATORS CONTINUE ANTIBIOTICS STEROIDS F/U CHEST CT 4-6 WKS TO DOCUMENT RESOLUTION OF INFILTRATES,ADENOPATHY PFTS OUTPATIENT DR AKHTAR Problem List - Problems (1) CAD (coronary artery disease) Code(s): I25.10 - ATHSCL HEART DISEASE OF [place] CORONARY ARTERY W/O ANG PCTRS Qualifiers: Coronary Disease-Associated Artery/Lesion type: bypass graft [place] vs. transplanted heart: [place] heart Associated angina: without angina Qualified Code(s): I25.810 - Atherosclerosis of coronary artery bypass graft( s) without angina pectoris (2) HTN (hypertension) Code(s): I10 - ESSENTIAL (PRIMARY) HYPERTENSION Qualifiers: Hypertension type: essential hypertension Qualified Code(s): I10 - Essential (primary) hypertension (3) Pneumonia Code(s): J18.9 - PNEUMONIA, UNSPECIFIED ORGANISM Qualifiers: Pneumonia type: due to unspecified organism Laterality: left Lung location: lower lobe of lung Qualified Code(s): J18.1 - Lobar pneumonia, unspecified organism (4) Mediastinal adenopathy Code(s): R59.0 - LOCALIZED ENLARGED LYMPH NODES (5) Hilar lymphadenopathy Code(s): R59.0 - LOCALIZED ENLARGED LYMPH NODES Problem List - Problems (1) CAD (coronary artery disease) Code(s): I25.10 - ATHSCL HEART DISEASE OF [place] CORONARY ARTERY W/O ANG PCTRS Qualifiers: Coronary Disease-Associated Artery/Lesion type: bypass graft [place] vs. transplanted heart: [place] heart Associated angina: without angina Qualified Code(s): I25.810 - Atherosclerosis of coronary artery bypass graft( s) without angina pectoris (2) HTN (hypertension) Code(s): I10 - ESSENTIAL (PRIMARY) HYPERTENSION Qualifiers: Hypertension type: essential hypertension Qualified Code(s): I10 - Essential (primary) hypertension (3) Pneumonia Code(s): J18.9 - PNEUMONIA, UNSPECIFIED ORGANISM Qualifiers: Pneumonia type: due to unspecified organism Laterality: left Lung location: lower lobe of lung Qualified Code(s): J18.1 - Lobar pneumonia, unspecified organism (4) Mediastinal adenopathy Code(s): R59.0 - LOCALIZED ENLARGED LYMPH NODES (5) Hilar lymphadenopathy Code(s): R59.0 - LOCALIZED ENLARGED LYMPH NODES
[2017-02-09] MEDS: ALBUTEROL SO4 2.5/IPRATROPIUM 0.5 INH SOL 3 ML VIAL.NEB. NEB SCH ×3 (12:07→23:10)
--- NOTE | 2017-02-09 14:01 | CON.CARD ---
Consult Consult Specialty:: cardiology Reason for Consultation:: chest pain - History of Present Illness Chief Complaint: Presently without chest pain; + dyspnea on mild exertion. History of Present Illness: The patient is a 81 year old male ([facility]) with a significant past medical history of coronary stents, open heart surgery (20 years ago), prostate surgery (3 years ago), HTN, HLD, who presents to the ED accompanied with daughter, complaining of SOB, left-sided chest pain, and cough. Pt states he has been having these symptoms for the past month. He describes the chest pain as sharp and 8/10 in severity. He just came [place] the [place] [address] [facility]. Saw Dr. Franz on and was told he had congestion or pneumonia. 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 [facility] Pre[facility]anged Funerals: Dr. Franz at [facility]. - History Source History Provided By: Family Member Limitations to Obtaining History: Language Barrier - Past Medical History Cardio/Vascular: Yes: CAD, HTN, Hyperlipdemia Renal/: Yes: BPH - Past Surgical History Past Surgical History: Yes: CABG, TURP - Alcohol/Substance Use Hx Alcohol Use: No History of Substance Use: reports: None - Smoking History Smoking history: Never smoked Home Medications - Allergies Allergies/Adverse Reactions: Allergies Allergy/AdvReac Type Severity Reaction Status Date / Time No Known Allergies Allergy Verified 02/06/17 23:02 - Home Medications Home Medications: Ambulatory Orders Aspirin [ASA -] 81 mg PO DAILY 02/06/17 Azithromycin [Zithromax -] 250 mg PO DAILY 02/06/17 Tamsulosin HCl [Flomax] 0.4 mg PO DAILY 02/06/17 Family Disease History - Family Disease History Family History: Denies Review of Systems - Review of Systems Constitutional: reports: No Symptoms Eyes: reports: No Symptoms HENT: reports: No Symptoms Neck: reports: No Symptoms Cardiovascular: reports: Chest Pain Respiratory: reports: SOB, Wheezing Gastrointestinal: reports: No Symptoms Genitourinary: reports: No Symptoms Breasts: reports: No Symptoms Reported Musculoskeletal: reports: No Symptoms Integumentary: reports: No Symptoms Neurological: reports: No Symptoms Endocrine: reports: No Symptoms Hematology/Lymphatic: reports: No Symptoms Psychiatric: reports: No Symptoms - Risk Factors Known Risk Factors: Yes: Age, Gender, Hypercholesterolemia, Hypertension, Other (CAD-->PCI; CABG) Vital Signs: Vital Signs Temperature 97.6 F 02/09/17 07:30 Pulse Rate 113 H 02/09/17 07:30 Respiratory Rate 19 02/09/17 07:30 Blood Pressure 153/83 02/09/17 07:30 O2 Sat by Pulse Oximetry (%) 95 02/08/17 22:00 Constitutional: Yes: Anxious Eyes: Yes: WNL HENT: Yes: WNL Neck: Yes: WNL Respiratory: Yes: Diminished, Wheezes (mild; virtually clear after coughing) Gastrointestinal: Yes: Soft Renal/: No: Anuria Cardiovascular: Yes: Regular Rate and Rhythm JVD: Yes Carotid Bruit: No PMI: Displaced Heart Sounds: Yes: S1, Split S2 Murmur: Yes: Systolic Murmur, Grade 1 Musculoskeletal: Yes: WNL Extremities: Yes: WNL Edema: No Peripheral Pulses WNL: Yes Integumentary: Yes: Other (left leg and vertical sternal chest scars (hx CABG)) Psychiatric: Yes: Alert - Other Data Labs, Other Data: CBC, BMP 02/09/17 06:10 02/09/17 06:10 INR, PTT INR 1.17 (0.82-1.09) H 02/07/17 00:10 Troponin, BNP 02/09/17 02/09/17 06:10 08:25 Troponin I < 0.02 0.02 Troponin, BNP 02/09/17 02/09/17 06:10 08:25 Troponin I < 0.02 0.02 Abnormal Lab Results 02/09/17 02/09/17 02/09/17 06:10 06:10 06:10 Hgb 10.8 L Hct 34.1 L MCHC 31.8 L RDW 17.9 H Neutrophils % 89.0 H D Monocytes % 0.7 L D ESR 86 H BUN 21 H D Random Glucose 160 H D Calcium 8.1 L AST 11 L Troponin I C-Reactive Protein Albumin 2.6 L 02/09/17 02/09/17 02/09/17 08:25 14:30 20:00 Hgb Hct MCHC RDW Neutrophils % Monocytes % ESR BUN Random Glucose Calcium AST Troponin I 0.41 H D 0.54 H D C-Reactive Protein 1.5 H Albumin Echo: Report Reviewed (mildly reduced LVEF; regional wall motion abnormalities) Ejection Fraction %: LVEF < 40 % Imaging - Results Chest X-ray: Image Reviewed (LLL PNA and effusion) EKG: Image Reviewed (NSR; incomplete LBBB; nonspecific ST-T changes) Other: Image Reviewed (telemetry: NSR; no arryhthmias) Problem List - Problems (1) CAD (coronary artery disease) Assessment/Plan: TNI <0.02 x 2 (however, taken only two hours apart); f/u serially. F/u cardiac workups done (eg last coronary stent in ? 2014). On metoprolol (f/u regarding hx "wheezing") and amlodipine. Start lisinopril (systolic CHF; CAD; HTN). Code(s): I25.10 - ATHSCL HEART DISEASE OF [place] CORONARY ARTERY W/O ANG PCTRS Qualifiers: Coronary Disease-Associated Artery/Lesion type: bypass graft [place] vs. transplanted heart: [place] heart Associated angina: without angina Qualified Code(s): I25.810 - Atherosclerosis of coronary artery bypass graft( s) without angina pectoris (2) HTN (hypertension) Code(s): I10 - ESSENTIAL (PRIMARY) HYPERTENSION Qualifiers: Hypertension type: essential hypertension Qualified Code(s): I10 - Essential (primary) hypertension (3) Hilar lymphadenopathy Code(s): R59.0 - LOCALIZED ENLARGED LYMPH NODES (4) Hyperlipidemia Code(s): E78.5 - HYPERLIPIDEMIA, UNSPECIFIED Qualifiers: Hyperlipidemia type: unspecified Qualified Code(s): E78.5 - Hyperlipidemia, unspecified (5) Pneumonia Assessment/Plan: antibiotics per ID and pulmonary. Code(s): J18.9 - PNEUMONIA, UNSPECIFIED ORGANISM Qualifiers: Pneumonia type: due to unspecified organism Laterality: left Lung location: lower lobe of lung Qualified Code(s): J18.1 - Lobar pneumonia, unspecified organism (6) Acute on chronic systolic (congestive) heart failure Assessment/Plan: Hilar fullness, ?left pleural effusion on CXR. +JVD ECHO: mildlly reduced LVEF; trace to mild TR; mild to moderate MR, mild LAE. TNI < 0.02 x 2. On metoprolol. Add lisinopril. Furosemide prn. F/u BUN/Cr, electrolytes, daily weight, Is and Os. Code(s): I50.23 - ACUTE ON CHRONIC SYSTOLIC (CONGESTIVE) HEART FAILURE (7) Anemia Code(s): D64.9 - ANEMIA, UNSPECIFIED
[2017-02-09] MEDS: LISINOPRIL 5 MG TABLET (FP) PO SCH (14:57)
[2017-02-09 15:46] LABS: TROPONIN I 0.41 ng/ml (0.00-0.05)
[2017-02-09 21:28] LABS: TROPONIN I 0.54 ng/ml (0.00-0.05)
[2017-02-09] MEDS: ENOXAPARIN NA (PORCINE) 80 MG/0.8 ML DISP.SYRIN SQ SCH (22:00)
[2017-02-09] MEDS: METOPROLOL TARTRATE 50 MG TABLET (FP) PO SCH (22:00)
[2017-02-09] MEDS: FUROSEMIDE 40 MG/4 ML INJECTABLE VIAL IVPUSH SCH (22:00)
[2017-02-09] MEDS ORDERED: CLOPIDOGREL BISULFATE 300 MG TABLET PO ONE (22:00)
[2017-02-09] MEDS: ATORVASTATIN CA 10 MG TABLET (FP) PO SCH (22:00)
[2017-02-10] MEDS: methylPREDNISolone NA SUCC 40 MG/1 ML VIAL IVPB SCH ×2 (03:15→22:19)
[2017-02-10] MEDS: ALBUTEROL SO4 2.5/IPRATROPIUM 0.5 INH SOL 3 ML VIAL.NEB. NEB SCH ×3 (06:18→17:46)
[2017-02-10] MEDS: NITROGLYCERIN 2% OINTMENT - 1GM PACKET TD SCH ×3 (06:48→17:24)
[2017-02-10 07:02] LABS: BASOPHIL 0.1 % (0-2.0); MCH 25.5 pg (25.7-33.7); MEAN CELL VOLUME 79.6 fl (80-96); MEAN PLT VOLUME 8.9 fl (7.5-11.1); NEUTROPHILS 91.6 % (42.8-82.8); PLATELET COUNT 231 K/MM3 (134-434); RDW 17.7 % (11.9-15.9)
[2017-02-10 08:21] LABS: ALBUMIN 2.6 g/dl (3.4-5.0); BILIRUBIN,TOTAL 0.5 mg/dL (0.2-1.0); CALCIUM 7.7 mg/dL (8.5-10.1); COCKROFT - GAULT 48.01; CREATININE 1.4 mg/dL (0.7-1.3); TOT PROT 6.3 g/dl (6.4-8.2)
--- NOTE | 2017-02-10 08:49 | PN ---
Progress Note (short form) - Note Progress Note: second and third troponin CBC, BMP 02/10/17 05:47 02/10/17 05:47 Vital Signs Period Temp Pulse Resp BP Sys/[place] Pulse Ox Last 24 Hr 97.6 F-98.4 F 57-99 18-20 104-146/49-66 93-97 S1S2 RRR Lungs coarse BS abd soft no edema awake alert, no focal deficit feels comfortable denies chest pain since yesterday am Imp Initial admission for dyspnea, possible pneumonia with underlying chronic lung ds. CT read as infiltrates with adenopathy-?bronchiectasis cont iv abx, nebs, O2 for now added iv diuresis troponin has not peaked yet, however on lower side with normal CK EKG stable, medically appears stable echo reviewed -wall motion abnormalities noted continue asa/plavix/statin/bblocker/aceinh/ntp will d/w cardiology
[2017-02-10 09:02] LABS: TROPONIN I 0.45 ng/ml (0.00-0.05)
[2017-02-10] MEDS: CLOPIDOGREL BISULFATE 75 MG TABLET (FP) PO SCH (09:30)
[2017-02-10] MEDS: amLODIPine BESYLATE 5 MG TABLET (FP) PO SCH (09:30)
[2017-02-10] MEDS: cefTRIAXone 1 GM/50 ML BAG (PRE-DOCKED) IVPB SCH (09:30)
[2017-02-10] MEDS: TAMSULOSIN HCL 0.4 MG CAP.ER.24H (FP) PO SCH (09:30)
[2017-02-10] MEDS: FUROSEMIDE 40 MG/4 ML INJECTABLE VIAL IVPUSH SCH (09:31)
[2017-02-10] MEDS: METOPROLOL TARTRATE 50 MG TABLET (FP) PO SCH ×2 (09:31→22:15)
[2017-02-10] MEDS: ENOXAPARIN NA (PORCINE) 80 MG/0.8 ML DISP.SYRIN SQ SCH ×2 (09:31→22:16)
[2017-02-10] MEDS: LISINOPRIL 5 MG TABLET (FP) PO SCH (09:31)
[2017-02-10] MEDS: ASPIRIN 81 MG CHEWABLE TABLETS PO SCH (09:31)
[2017-02-10] MEDS ORDERED: methylPREDNISolone NA SUCC 40 MG/1 ML VIAL IVPB SCH (10:00)
--- NOTE | 2017-02-10 11:21 | PN ---
Progress Note, Physician History of Present Illness: The patient is a 81 year old male ([facility]) with a significant past medical history of coronary stents, open heart surgery (20 years ago), prostate surgery (3 years ago), HTN, HLD,PAD lext bypass who presents to the ED accompanied with daughter, complaining of SOB, left-sided chest pain, and cough. Pt states he has been having these symptoms for the past month. He describes the chest pain as sharp and 8/10 in severity. He just came [place] the [place] ago from [facility]. Saw Dr. Franz on and was told he had congestion or pneumonia. 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 PCP: Samantha Prajapati Computer Methods Analyst: Dr. Franz at [place]. - Current Medication List Current Medications: Active Medications Acetaminophen (Tylenol -) 650 mg PO Q4H PRN PRN Reason: FEVER OR PAIN Last Admin: 02/09/17 03:34 Dose: 650 mg Albuterol Sulfate (Ventolin 0.083% Nebulizer Soln -) 1 amp NEB Q4H PRN PRN Reason: SHORT OF BREATH/WHEEZING Albuterol/Ipratropium (Duoneb -) 1 amp NEB QIDR [facility] Last Admin: 02/10/17 06:18 Dose: 1 amp Amlodipine Besylate (Norvasc -) 5 mg PO DAILY [facility] Last Admin: 02/10/17 09:30 Dose: 5 mg Aspirin (Asa -) 81 mg PO DAILY [facility] Last Admin: 02/10/17 09:31 Dose: 81 mg Atorvastatin Calcium (Lipitor -) 10 mg PO HS [facility] Last Admin: 02/09/17 22:00 Dose: 10 mg Azithromycin (Zithromax -) 500 mg PO DAILY [facility] Ceftriaxone Sodium (Rocephin 1gm Ivpb (Pre-Docked)) 1 gm IVPB DAILY [facility] Last Admin: 02/10/17 09:30 Dose: 1 gm Clopidogrel Bisulfate (Plavix -) 75 mg PO DAILY [facility] Last Admin: 02/10/17 09:30 Dose: 75 mg Enoxaparin Sodium (Lovenox -) 80 mg SQ BID [facility] Last Admin: 02/10/17 09:31 Dose: 80 mg Furosemide (Lasix Injection -) 40 mg IVPUSH DAILY [facility] Last Admin: 02/10/17 09:31 Dose: 40 mg Lisinopril (Prinivil) 5 mg PO DAILY [facility] Last Admin: 02/10/17 09:31 Dose: 5 mg Methylprednisolone Sodium Succinate (Solu-Medrol -) 40 mg IVPB BID [facility] Last Admin: 02/10/17 09:32 Dose: 40 mg Metoprolol Tartrate (Lopressor -) 50 mg PO BID [facility] Last Admin: 02/10/17 09:31 Dose: 50 mg Nitroglycerin (Nitro-Bid 2% Paste -) 1 inch TD Q6HPO [facility] Last Admin: 02/10/17 06:48 Dose: 1 inch Tamsulosin HCl (Flomax -) 0.4 mg PO DAILY@0830 [facility] Last Admin: 02/10/17 09:30 Dose: 0.4 mg - Objective Vital Signs: Vital Signs Temperature 97.8 F 02/10/17 06:00 Pulse Rate 59 L 02/10/17 06:00 Respiratory Rate 18 02/10/17 06:00 Blood Pressure 107/53 02/10/17 06:00 O2 Sat by Pulse Oximetry (%) 93 L 02/09/17 21:00 Eyes: Yes: WNL, Conjunctiva Clear, EOM Intact HENT: Yes: WNL, Atraumatic, Normocephalic Neck: Yes: WNL, Supple, Trachea Midline Cardiovascular: Yes: WNL, Regular Rate and Rhythm Respiratory: Yes: WNL, Regular, CTA Bilaterally Gastrointestinal: Yes: WNL, Normal Bowel Sounds Genitourinary: Yes: WNL Musculoskeletal: Yes: WNL Extremities: Yes: WNL Edema: No Integumentary: Yes: WNL Neurological: Yes: WNL, Alert, Oriented ...Motor Strength: WNL Psychiatric: Yes: WNL Labs: CBC, BMP 02/10/17 05:47 02/10/17 05:47 INR, PTT INR 1.17 (0.82-1.09) H 02/07/17 00:10 Laboratory Tests 02/07/17 02/07/17 02/07/17 00:10 00:10 00:10 WBC 7.6 RBC 4.37 Hgb 11.0 L Hct 35.0 L MCV 80.2 MCHC 31.5 L RDW 18.3 H Plt Count 258 MPV 8.7 Neutrophils % 63.7 Lymphocytes % 16.1 Monocytes % 13.2 H Eosinophils % 5.0 H Basophils % 2.0 ESR INR 1.17 H Sodium 141 Potassium 4.8 Chloride 104 Carbon Dioxide 29 Anion Gap 8 BUN 21 H Creatinine 1.2 Creat Clearance w eGFR 57.82 Random Glucose 110 H Calcium 8.2 L Magnesium 2.2 Total Bilirubin 0.1 L AST 12 L ALT 17 Alkaline Phosphatase 69 LD Total Creatine Kinase 72 Troponin I 0.02 C-Reactive Protein B-Natriuretic Peptide 4910.91 H Total Protein 6.9 Albumin 2.6 L Triglycerides Cholesterol Total LDL Cholesterol HDL Cholesterol TSH 02/07/17 02/07/17 02/08/17 06:15 06:15 05:36 WBC 8.2 6.2 RBC 4.55 4.31 Hgb 11.6 L 11.1 L Hct 36.6 34.8 L MCV 80.3 80.8 MCHC 31.8 L 32.0 RDW 17.8 H 17.8 H Plt Count 252 233 MPV 9.2 8.7 Neutrophils % 66.8 67.8 Lymphocytes % 17.2 15.9 Monocytes % 12.1 H 9.7 Eosinophils % 2.4 5.4 H D Basophils % 1.5 1.2 ESR INR Sodium 140 Potassium 4.2 Chloride 99 Carbon Dioxide 29 Anion Gap 12 BUN 21 H Creatinine 1.1 Creat Clearance w eGFR > 60 Random Glucose 118 H Calcium 8.3 L Magnesium Total Bilirubin 0.2 D AST 13 L ALT 17 Alkaline Phosphatase 69 LD Total Creatine Kinase Troponin I C-Reactive Protein B-Natriuretic Peptide Total Protein 7.2 Albumin 2.9 L Triglycerides Cholesterol Total LDL Cholesterol HDL Cholesterol TSH 02/08/17 02/09/17 02/09/17 05:36 06:10 06:10 WBC 5.6 RBC 4.24 Hgb 10.8 L Hct 34.1 L MCV 80.4 MCHC 31.8 L RDW 17.9 H Plt Count 245 MPV 8.7 Neutrophils % 89.0 H D Lymphocytes % 10.1 D Monocytes % 0.7 L D Eosinophils % 0.0 D Basophils % 0.2 ESR INR Sodium 140 141 Potassium 4.9 4.6 Chloride 102 101 Carbon Dioxide 33 H 26 D Anion Gap 5 L 14 BUN 17 21 H D Creatinine 1.1 1.0 Creat Clearance w eGFR > 60 > 60 Random Glucose 120 H 160 H D Calcium 7.6 L 8.1 L Magnesium Total Bilirubin 0.4 D 0.4 AST 13 L 11 L ALT 13 D 15 Alkaline Phosphatase 63 67 LD Total 137 Creatine Kinase Troponin I C-Reactive Protein B-Natriuretic Peptide Total Protein 6.6 6.6 Albumin 2.6 L 2.6 L Triglycerides 89 Cholesterol 167 Total LDL Cholesterol 95 HDL Cholesterol 61 H TSH 02/09/17 02/09/17 02/09/17 06:10 06:10 08:25 WBC RBC Hgb Hct MCV MCHC RDW Plt Count MPV Neutrophils % Lymphocytes % Monocytes % Eosinophils % Basophils % ESR 86 H INR Sodium Potassium Chloride Carbon Dioxide Anion Gap BUN Creatinine Creat Clearance w eGFR Random Glucose Calcium Magnesium Total Bilirubin AST ALT Alkaline Phosphatase LD Total Creatine Kinase 67 Troponin I < 0.02 C-Reactive Protein Cancelled B-Natriuretic Peptide Total Protein Albumin Triglycerides Cholesterol Total LDL Cholesterol HDL Cholesterol TSH 02/09/17 02/09/17 02/09/17 08:25 14:30 20:00 WBC RBC Hgb Hct MCV MCHC RDW Plt Count MPV Neutrophils % Lymphocytes % Monocytes % Eosinophils % Basophils % ESR INR Sodium Potassium Chloride Carbon Dioxide Anion Gap BUN Creatinine Creat Clearance w eGFR Random Glucose Calcium Magnesium Total Bilirubin AST ALT Alkaline Phosphatase LD Total Creatine Kinase 67 Troponin I 0.02 0.41 H D C-Reactive Protein 1.5 H B-Natriuretic Peptide Total Protein Albumin Triglycerides Cholesterol Total LDL Cholesterol HDL Cholesterol TSH 0.55 02/09/17 02/10/17 02/10/17 20:00 05:47 05:47 WBC 10.0 D RBC 3.95 L Hgb 10.0 L Hct 31.4 L MCV 79.6 L MCHC 32.0 RDW 17.7 H Plt Count 231 MPV 8.9 Neutrophils % 91.6 H Lymphocytes % 5.7 L D Monocytes % 2.6 L D Eosinophils % 0.0 Basophils % 0.1 ESR INR Sodium 139 Potassium 4.8 Chloride 101 Carbon Dioxide 27 Anion Gap 11 BUN 34 H D Creatinine 1.4 H D Creat Clearance w eGFR 48.40 Random Glucose 166 H Calcium 7.7 L Magnesium Total Bilirubin 0.5 D AST 14 L D ALT 16 Alkaline Phosphatase 58 LD Total Creatine Kinase 64 61 Troponin I 0.54 H D 0.45 H C-Reactive Protein B-Natriuretic Peptide Total Protein 6.3 L Albumin 2.6 L Triglycerides Cholesterol Total LDL Cholesterol HDL Cholesterol TSH Problem List - Problems (1) Acute on chronic systolic (congestive) heart failure Code(s): I50.23 - ACUTE ON CHRONIC SYSTOLIC (CONGESTIVE) HEART FAILURE (2) Anemia Code(s): D64.9 - ANEMIA, UNSPECIFIED (3) BPH (benign prostatic hyperplasia) Code(s): N40.0 - BENIGN PROSTATIC HYPERPLASIA WITHOUT LOWER URINRY TRACT SYMP Qualifiers: Prostatic enlargement morphology: unspecified morphology Lower urinary tract symptom presence: presence of symptoms unspecified Qualified Code(s ): N40.0 - Benign prostatic hyperplasia without lower urinary tract symptoms (4) CAD (coronary artery disease) Code(s): I25.10 - ATHSCL HEART DISEASE OF [place] CORONARY ARTERY W/O ANG PCTRS Qualifiers: Coronary Disease-Associated Artery/Lesion type: bypass graft [place] vs. transplanted heart: [place] heart Associated angina: without angina Qualified Code(s): I25.810 - Atherosclerosis of coronary artery bypass graft( s) without angina pectoris (5) HTN (hypertension) Code(s): I10 - ESSENTIAL (PRIMARY) HYPERTENSION Qualifiers: Hypertension type: essential hypertension Qualified Code(s): I10 - Essential (primary) hypertension (6) Hilar lymphadenopathy Code(s): R59.0 - LOCALIZED ENLARGED LYMPH NODES (7) Hyperlipidemia Code(s): E78.5 - HYPERLIPIDEMIA, UNSPECIFIED Qualifiers: Hyperlipidemia type: unspecified Qualified Code(s): E78.5 - Hyperlipidemia, unspecified (8) Mediastinal adenopathy Code(s): R59.0 - LOCALIZED ENLARGED LYMPH NODES (9) Pneumonia Code(s): J18.9 - PNEUMONIA, UNSPECIFIED ORGANISM Qualifiers: Pneumonia type: due to unspecified organism Laterality: left Lung location: lower lobe of lung Qualified Code(s): J18.1 - Lobar pneumonia, unspecified organism Assessment/Plan nonstemi ashd s/p pci s/p cabg pad chf systolic cri pna Plan cont dapt lovonox stop lasix since chf improved and BUN/cr worsen cont BB will need c. cath when stable
[2017-02-10] MEDS: AZITHROMYCIN 250 MG TABLET (FP) PO SCH (12:08)
--- NOTE | 2017-02-10 12:08 | PN ---
Teaching Attending Note Name of Resident: Devyn Jimenes ATTENDING PHYSICIAN STATEMENT I saw and evaluated the patient. I reviewed the resident's note and discussed the case with the resident. I agree with the resident's findings and plan as documented. pulmonary alert,comfortable,less congested IMP PNEUMONIA DYSPNEA ?INTERSTITIAL LUNG DISEASE,COPD,CHRONIC LUNG DISEASE MEDIASTINAL AND HILAR ADENOPATHY ? REACTIVE,?INFECTIOUS,?MALIGNANT ASHD S/P CABG,STENTS HTN PLAN INHALED BRONCHODILATORS ANTIBIOTICS STEROID TAPER F/U CHEST CT 4-6 WKS TO DOCUMENT RESOLUTION OF INFILTRATES,ADENOPATHY PFTS OUTPATIENT CHEST X-RAY AM DR AKHTAR Problem List - Problems (1) CAD (coronary artery disease) Code(s): I25.10 - ATHSCL HEART DISEASE OF [place] CORONARY ARTERY W/O ANG PCTRS Qualifiers: Coronary Disease-Associated Artery/Lesion type: bypass graft [place] vs. transplanted heart: [place] heart Associated angina: without angina Qualified Code(s): I25.810 - Atherosclerosis of coronary artery bypass graft( s) without angina pectoris (2) HTN (hypertension) Code(s): I10 - ESSENTIAL (PRIMARY) HYPERTENSION Qualifiers: Hypertension type: essential hypertension Qualified Code(s): I10 - Essential (primary) hypertension (3) Pneumonia Code(s): J18.9 - PNEUMONIA, UNSPECIFIED ORGANISM Qualifiers: Pneumonia type: due to unspecified organism Laterality: left Lung location: lower lobe of lung Qualified Code(s): J18.1 - Lobar pneumonia, unspecified organism (4) Mediastinal adenopathy Code(s): R59.0 - LOCALIZED ENLARGED LYMPH NODES (5) Hilar lymphadenopathy Code(s): R59.0 - LOCALIZED ENLARGED LYMPH NODES Problem List - Problems (1) CAD (coronary artery disease) Code(s): I25.10 - ATHSCL HEART DISEASE OF [place] CORONARY ARTERY W/O ANG PCTRS Qualifiers: Coronary Disease-Associated Artery/Lesion type: bypass graft [place] vs. transplanted heart: [place] heart Associated angina: without angina Qualified Code(s): I25.810 - Atherosclerosis of coronary artery bypass graft( s) without angina pectoris (2) HTN (hypertension) Code(s): I10 - ESSENTIAL (PRIMARY) HYPERTENSION Qualifiers: Hypertension type: essential hypertension Qualified Code(s): I10 - Essential (primary) hypertension (3) Pneumonia Code(s): J18.9 - PNEUMONIA, UNSPECIFIED ORGANISM Qualifiers: Pneumonia type: due to unspecified organism Laterality: left Lung location: lower lobe of lung Qualified Code(s): J18.1 - Lobar pneumonia, unspecified organism (4) Mediastinal adenopathy Code(s): R59.0 - LOCALIZED ENLARGED LYMPH NODES (5) Hilar lymphadenopathy Code(s): R59.0 - LOCALIZED ENLARGED LYMPH NODES Problem List - Problems (1) CAD (coronary artery disease) Code(s): I25.10 - ATHSCL HEART DISEASE OF [place] CORONARY ARTERY W/O ANG PCTRS Qualifiers: Coronary Disease-Associated Artery/Lesion type: bypass graft [place] vs. transplanted heart: [place] heart Associated angina: without angina Qualified Code(s): I25.810 - Atherosclerosis of coronary artery bypass graft( s) without angina pectoris (2) HTN (hypertension) Code(s): I10 - ESSENTIAL (PRIMARY) HYPERTENSION Qualifiers: Hypertension type: essential hypertension Qualified Code(s): I10 - Essential (primary) hypertension (3) Pneumonia Code(s): J18.9 - PNEUMONIA, UNSPECIFIED ORGANISM Qualifiers: Pneumonia type: due to unspecified organism Laterality: left Lung location: lower lobe of lung Qualified Code(s): J18.1 - Lobar pneumonia, unspecified organism (4) Mediastinal adenopathy Code(s): R59.0 - LOCALIZED ENLARGED LYMPH NODES (5) Hilar lymphadenopathy Code(s): R59.0 - LOCALIZED ENLARGED LYMPH NODES
--- NOTE | 2017-02-10 13:25 | EKG ---
Test Reason : Blood Pressure : / mmHG Vent. Rate : 070 BPM Atrial Rate : 070 BPM P-R Int : 168 ms QRS Dur : 100 ms QT Int : 444 ms P-R-T Axes : 047 012 112 degrees QTc Int : 479 ms NORMAL SINUS RHYTHM NONSPECIFIC T WAVE ABNORMALITY PROLONGED QT ABNORMAL ECG WHEN COMPARED WITH ECG OF 09-FEB-2017 07:32, VENT. RATE HAS DECREASED BY 35 BPM INCOMPLETE LEFT BUNDLE BRANCH BLOCK IS NO LONGER PRESENT Confirmed by JOVANNY SIMMONS MD ([id number]) on 02/10/2017 1:25:31 PM Referred By: Confirmed By:JOVANNY SIMMONS MD
--- NOTE | 2017-02-10 13:29 | EKG ---
Test Reason : Blood Pressure : / mmHG Vent. Rate : 075 BPM Atrial Rate : 075 BPM P-R Int : 160 ms QRS Dur : 098 ms QT Int : 440 ms P-R-T Axes : 050 014 090 degrees QTc Int : 491 ms NORMAL SINUS RHYTHM PROLONGED QT ABNORMAL ECG WHEN COMPARED WITH ECG OF 09-FEB-2017 18:07, NO SIGNIFICANT CHANGE WAS FOUND Confirmed by JOVANNY SIMMONS MD ([id number]) on 02/10/2017 1:28:34 PM Referred By: Torey QUEVEDO Confirmed By:JOVANNY SIMMONS MD
[2017-02-10] MEDS: ATORVASTATIN CA 10 MG TABLET (FP) PO SCH (22:15)
[2017-02-11] MEDS: ALBUTEROL SO4 2.5/IPRATROPIUM 0.5 INH SOL 3 ML VIAL.NEB. NEB SCH ×2 (00:45→05:50)
[2017-02-11] MEDS: NITROGLYCERIN 2% OINTMENT - 1GM PACKET TD SCH ×2 (01:03→06:06)
[2017-02-11 06:52] LABS: MCH 25.5 pg (25.7-33.7); MCHC 31.9 g/dl (32.0-35.9); MEAN CELL VOLUME 79.8 fl (80-96); MEAN PLT VOLUME 8.8 fl (7.5-11.1); PLATELET COUNT 246 K/MM3 (134-434); RDW 17.8 % (11.9-15.9); WHITE BLOOD COUNT 10.5 K/mm3 (4.0-10.0)
[2017-02-11 07:03] LABS: ALBUMIN 2.7 g/dl (3.4-5.0); BILIRUBIN,TOTAL 0.2 mg/dL (0.2-1.0); CALCIUM 7.8 mg/dL (8.5-10.1); COCKROFT - GAULT 51.7; CREATININE 1.3 mg/dL (0.7-1.3); TOT PROT 6.5 g/dl (6.4-8.2)
[2017-02-11 07:04] LABS: INR 1.2 (0.82-1.09); PROTHROMBIN TIME (PATIENT) 13.3 SEC (9.98-11.88)
--- NOTE | 2017-02-11 08:47 | PN ---
[id number]bQBRHCMTuH7WhQLQXWJRWTFQPKY6OWLTMhGH OUh0iGUEPlPcJHBVVeXZ wZVHXnEyifrlHSRsKP9zRoAwbYJyjKP4LVTePvgkHwjJ6AbUTxxazTr1hJf5TytSH8/ RMa9JXA2iJF78Burnrn51PESqHGTqcPuAkKXA7ToT1RfV8AUGrDVE4IBH3G4ERij2HSVmKKvF38YajTX UVLCdXGMFNh1U1x4GmIPKAzNbgwZ6Uk7sMD2suVBI6toBEhRA0DQUBLVNbxehWuECNVtDBXAHPnImlz9 PfqgOSCQLhU1msjC /o1iFkHCMYUzdm/jxgMBcgvxnUuMnHiCB6OuJf5ogy2apGs9lX4BUcFTTyovPL0hhIUmy9BbkDr3/ 2h47lCU/2cVHSj4bFkSPHrdmb9z8TYXNFj9LZew6z+rrbgFElhqx8+hl+znhUr+Tr6i3+ nlAsxTAiOTKOmQnwLiPsoUIBDiTw74vUpZ9IGLER+ sd0ueWQavoTns3GH2ajsz7So6sIZtR9UNnIEcUnhJjQ8fAcGsQEdY0WPWdOsEM6tBzCrMckzcKjJvvQm HgJlvaanD53vMRSloE9PIAmuxUn07DUHb7lUwg9lRjBYwkNlvTHD7RacspncCMOKHrq1qRcptaOrcHr / TKgHLT6zYOK9zPQ4x7VraV6EQ7laszn7aXE27jmlx36oGHMnee6WXrMDeODAGUzVhkUOoxRMwUEkgCOc kSTRYW02CTsCOBXtEgkLbOigUYGhYdPKnW4W06MaCmp9GvGg /SgQ6MhIVwUkbLy9xyxQZgQ60zN6z8FHI+ vNbQmd1L5RMSQnIvMf23TCWa8m7UQ0PiqaSR8DfvVasS5yp6Rwpbo4vkpjpPimirHew7Npl54TcW6UUN Dz93JNpyyaNLgr6a5byk1xZ8uJ /Zlx8u2/+ux8JYZ6JlHu/O5poZBaBX8E04hHBluzJOGyx6wjAHUrOcpggKYkHfn1/d1v3G+lP/ xEDYGKBclbe6Xm8NoKBx0GJhB1bupzytSMH5oxbeAAVrTHbe5p/28FdHUWDtUqAEuhA9x/ PPHgToVWNQib43dH2WbMeDTHmSBCRELe0Y1F95zcY7GlMIOVXcsOMIa5OWWxTaoIUe+ i2t8QXPft0asCv95Bqxl2IG7M+ncgEKy4wwH8uRSVRYMYKSCDY6PTJJ= 02/11/17 05:35 Vital Signs Period Temp Pulse Resp BP Sys/[place] Pulse Ox Last 24 Hr 97.9 F-98.4 F 60-85 18-20 106-136/48-87 95-95 S1S2 RRR Lungs coarse BS abd soft no edema awake alert, no focal deficit feels comfortable denies chest pain Imp Initial admission for dyspnea, possible pneumonia with underlying chronic lung ds. CT read as infiltrates with adenopathy-?bronchiectasis, will need repeat chest CT in 1 month cont iv abx, nebs, O2 for now chest pain with elevated cardiac enzymes suggestive of cardiac injury EKG stable, medically appears stable echo reviewed -wall motion abnormalities noted continue asa/plavix/statin/bblocker/aceinh/ntp as d/w cardiology plan cardiac cath. today at [facility]
--- NOTE | 2017-02-11 09:59 | PN ---
Progress Note, Physician Chief Complaint: Pt Alert; asymptomatic. Pt's sons are at bedside. History of Present Illness: The patient is a 81 year old male ([facility]) with a significant past medical history of CABG (1994); S/P Lt carotid artery endarterectomy and coronary stent ?2015 at [facility]), mild LV systolic dysfunction, prostate surgery (3 years ago), HTN, HLD, who presents to the ED accompanied with daughter, complaining of SOB, left-sided chest pain, and cough. Pt states he has been having these symptoms for the past month. He describes the chest pain as sharp and 8/10 in severity. He just came back [place] the [place] ago from [facility]. Saw Dr. Franz on and was told he had congestion or pneumonia ( was given course of Zithromax). 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 PCP: Dr. Moy, [facility] Flyer Maker: Dr. Franz at [place]. - Current Medication List Current Medications: Active Medications Acetaminophen (Tylenol -) 650 mg PO Q4H PRN PRN Reason: FEVER OR PAIN Last Admin: 02/09/17 03:34 Dose: 650 mg Albuterol Sulfate (Ventolin 0.083% Nebulizer Soln -) 1 amp NEB Q4H PRN PRN Reason: SHORT OF BREATH/WHEEZING Albuterol/Ipratropium (Duoneb -) 1 amp NEB QIDR [facility] Last Admin: 02/11/17 05:50 Dose: Not Given Amlodipine Besylate (Norvasc -) 5 mg PO DAILY [facility] Last Admin: 02/10/17 09:30 Dose: 5 mg Aspirin (Asa -) 81 mg PO DAILY [facility] Last Admin: 02/10/17 09:31 Dose: 81 mg Atorvastatin Calcium (Lipitor -) 10 mg PO HS [facility] Last Admin: 02/10/17 22:15 Dose: 10 mg Azithromycin (Zithromax -) 500 mg PO DAILY [facility] Last Admin: 02/10/17 12:08 Dose: 500 mg Ceftriaxone Sodium (Rocephin 1gm Ivpb (Pre-Docked)) 1 gm IVPB DAILY [facility] Last Admin: 02/10/17 09:30 Dose: 1 gm Clopidogrel Bisulfate (Plavix -) 75 mg PO DAILY [facility] Last Admin: 02/10/17 09:30 Dose: 75 mg Lisinopril (Prinivil) 5 mg PO DAILY [facility] Last Admin: 02/10/17 09:31 Dose: 5 mg Methylprednisolone Sodium Succinate (Solu-Medrol -) 20 mg IVPB BID [facility] Last Admin: 02/10/17 22:19 Dose: 20 mg Metoprolol Tartrate (Lopressor -) 50 mg PO BID [facility] Last Admin: 02/10/17 22:15 Dose: 50 mg Nitroglycerin (Nitro-Bid 2% Paste -) 1 inch TD Q6HPO [facility] Last Admin: 02/11/17 06:06 Dose: Not Given Tamsulosin HCl (Flomax -) 0.4 mg PO DAILY@0830 [facility] Last Admin: 02/10/17 09:30 Dose: 0.4 mg - Objective Vital Signs: Vital Signs Temperature 97.9 F 02/11/17 06:06 Pulse Rate 67 02/11/17 06:06 Respiratory Rate 18 02/11/17 06:06 Blood Pressure 136/87 02/11/17 06:06 O2 Sat by Pulse Oximetry (%) 95 02/10/17 21:00 Constitutional: Yes: No Distress Eyes: Yes: WNL HENT: Yes: WNL Neck: Yes: WNL Cardiovascular: Yes: Regular Rate and Rhythm Respiratory: Yes: Diminished, Rhonchi, SOB on Exertion Gastrointestinal: Yes: Soft ...Rectal Exam: Yes: Deferred Genitourinary: No: Anuria Musculoskeletal: Yes: Muscle Weakness Extremities: Yes: Cool Edema: No Peripheral Pulses WNL: No Integumentary: Yes: WNL Neurological: Yes: Alert, Oriented Psychiatric: Yes: WNL Labs: CBC, BMP 02/11/17 05:35 02/11/17 05:35 INR, PTT INR 1.20 (0.82-1.09) H 02/11/17 05:35 Abnormal Lab Results 02/11/17 02/11/17 02/11/17 05:35 05:35 05:35 WBC 10.5 H Hgb 10.9 L Hct 34.1 L MCV 79.8 L MCHC 31.9 L RDW 17.8 H INR 1.20 H BUN 44 H D Random Glucose 155 H Calcium 7.8 L Albumin 2.7 L - ....Imaging Chest X-ray: Image Reviewed (bilateral infiltrates (relatively unchanged)) Other: Image Reviewed (telemetry: NSR; occasional APCs.) Problem List - Problems (1) CAD (coronary artery disease) Assessment/Plan: TNI, initially0.02, shekhar to 0.54; now 0.45; cannot r/o NSTEMI, though pt has other factors that may influence thiese levels. CK WNL. Pt has mild systolic LV dysfunction, URI, mild renal insufficiency. Hx CABG 1994 ([facility]); s/p coronary angiogram 2013 and left carotid artery endarterectomy at [facility]. Rec: Agree with stopping furosemide. Continue present medications. For transfer to [facility] for coronary angiogram. Code(s): I25.10 - ATHSCL HEART DISEASE OF [place] CORONARY ARTERY W/O ANG PCTRS Qualifiers: Coronary Disease-Associated Artery/Lesion type: bypass graft [place] vs. transplanted heart: [place] heart Associated angina: without angina Qualified Code(s): I25.810 - Atherosclerosis of coronary artery bypass graft( s) without angina pectoris (2) HTN (hypertension) Code(s): I10 - ESSENTIAL (PRIMARY) HYPERTENSION Qualifiers: Hypertension type: essential hypertension Qualified Code(s): I10 - Essential (primary) hypertension (3) Hilar lymphadenopathy Code(s): R59.0 - LOCALIZED ENLARGED LYMPH NODES (4) Hyperlipidemia Assessment/Plan: on statin. Code(s): E78.5 - HYPERLIPIDEMIA, UNSPECIFIED Qualifiers: Hyperlipidemia type: unspecified Qualified Code(s): E78.5 - Hyperlipidemia, unspecified (5) Pneumonia Assessment/Plan: antibiotics (took Zithromax before admission here) per ID and pulmonary. Code(s): J18.9 - PNEUMONIA, UNSPECIFIED ORGANISM Qualifiers: Pneumonia type: due to unspecified organism Laterality: left Lung location: lower lobe of lung Qualified Code(s): J18.1 - Lobar pneumonia, unspecified organism (6) Acute on chronic systolic (congestive) heart failure Assessment/Plan: Hilar fullness, ?left pleural effusion on CXR. ECHO: mildlly reduced LVEF; trace to mild TR; mild to moderate MR, mild LAE. TNI < 0.02 x 2. On metoprolol. Added lisinopril. Furosemide prn (held presently (asymptomatic; rising BUN/Cr). F/u BUN/Cr, electrolytes, daily weight, Is and Os. Code(s): I50.23 - ACUTE ON CHRONIC SYSTOLIC (CONGESTIVE) HEART FAILURE (7) Anemia Code(s): D64.9 - ANEMIA, UNSPECIFIED
[2017-02-11] MEDS: cefTRIAXone 1 GM/50 ML BAG (PRE-DOCKED) IVPB SCH (10:18)
[2017-02-11] MEDS: ASPIRIN 81 MG CHEWABLE TABLETS PO SCH (10:19)
[2017-02-11] MEDS: METOPROLOL TARTRATE 50 MG TABLET (FP) PO SCH (10:19)
[2017-02-11] MEDS: methylPREDNISolone NA SUCC 40 MG/1 ML VIAL IVPB SCH (10:19)
[2017-02-11] MEDS: CLOPIDOGREL BISULFATE 75 MG TABLET (FP) PO SCH (10:19)
[2017-02-11] MEDS: TAMSULOSIN HCL 0.4 MG CAP.ER.24H (FP) PO SCH (10:20)
[2017-02-11] MEDS: amLODIPine BESYLATE 5 MG TABLET (FP) PO SCH (10:21)
[2017-02-11] MEDS: LISINOPRIL 5 MG TABLET (FP) PO SCH (10:21)
[2017-02-11] MEDS: AZITHROMYCIN 250 MG TABLET (FP) PO SCH (10:22)
[2017-02-11 12:37] VITALS: BP 134/65; PULSE 70; TEMP 97.7
--- NOTE | 2017-02-12 10:10 | DS ---
Physical Examination Vital Signs: Vital Signs Temperature 97.7 F 02/11/17 10:00 Pulse Rate 70 02/11/17 10:00 Respiratory Rate 18 02/11/17 10:00 Blood Pressure 134/65 02/11/17 10:00 O2 Sat by Pulse Oximetry (%) 95 02/11/17 09:00 Constitutional: Yes: No Distress, Calm Eyes: Yes: EOM Intact HENT: Yes: Normocephalic Neck: Yes: Trachea Midline Cardiovascular: Yes: Regular Rate and Rhythm Respiratory: Yes: Other (xoarse bilateral BS) Gastrointestinal: Yes: Normal Bowel Sounds, Soft Musculoskeletal: Yes: WNL Extremities: Yes: WNL Edema: No Labs: CBC, BMP 02/11/17 05:35 02/11/17 05:35 Discharge Summary Reason For Visit: [facility] Course: Admitted for dyspnea, cough and malaise Hypoxic in Er with diffuse bilateral wheezing, CT chest with iv contrast showed bronchiectasis and infiltrates. Was admitted for treatment of pneumonia and likely chronic lung ds. with iv abx , steroids, O2 and bronchodilators. During hospital stay he developed chest pain with nonspecific EKG changes and troponin peaked over0.5. After discussion with cardiology and family pt was transferred to [place] for card. cath. He will have top complete course of abx and f/up as outpt for repeat chest CT in 1 month and PFTs. Condition: Stable - Instructions Referrals: STAFF,NOT ON [Primary Care Provider] - Disposition: TRANSFER ACUTE CARE/OTHER HOSP - Home Medications Comprehensive Discharge Medication List: Ambulatory Orders Aspirin [ASA -] 81 mg PO DAILY 02/06/17 Azithromycin [Zithromax -] 250 mg PO DAILY 02/06/17 Tamsulosin HCl [Flomax] 0.4 mg PO DAILY 02/06/17
== END 2017-02-11 11:39 | disposition short-term general hospital (02) | DRG 193 ==
LOC: JER 22:56 → JERBED 02-07 01:45 → J4S 02-07 09:48
PROVIDERS: ADMIT Internal Medicine; ATTEND Internal Medicine
DX: J18.9 Pneumonia, unspecified organism (principal); I50.23 Acute on chronic systolic (congestive) heart failure; I21.4 Non-ST elevation (NSTEMI) myocardial infarction; J44.0 Chronic obstructive pulmonary disease with (acute) lower respiratory infection; I25.10 Atherosclerotic heart disease of native coronary artery without angina pectoris; Z95.1 Presence of aortocoronary bypass graft; Z95.5 Presence of coronary angioplasty implant and graft; E78.5 Hyperlipidemia, unspecified; N40.0 Benign prostatic hyperplasia without lower urinary tract symptoms; Z87.891 Personal history of nicotine dependence; R59.0 Localized enlarged lymph nodes; I11.0 Hypertensive heart disease with heart failure; D64.9 Anemia, unspecified; R09.02 Hypoxemia; N28.9 Disorder of kidney and ureter, unspecified
CPT/HCPCS: 36415; 71010-TC; 71275-TC; 80053; 80061; 82550; 83615; 83721; 83735; 83880; 84443; 84484; 85025; 85027; 85610; 85651; 86140; 87040; 87070; 87086; 87205; 87254; 87804; 87899; 93005; 93010; 93306-TC; 94640; 97116-GP; 97161-GP; 99285-25